=== PATIENT | male | born 1970 | race Caucasian/White ===

== ENCOUNTER 2017-09-14 21:28 | Emergency (ER) | payer OTHER ==
[~2017-09-14] VITALS: Ht 170.2 cm; Wt 108.9 kg
[~2017-09-14 21:28] MED LIST: AMOX500 PO; BUPR100 PO; Bactrim Ds Tab1 EACH PO; IBUP600 PO; IBUP800 PO; Norco 5-325 Ta1 EACH PO; Percocet 5-3251 EACH PO; TRAZ100 PO; Valium2 MG PO; Vibramycin100 MG PO
== END 2017-09-14 22:23 ==
LOC: ER 21:28
DX: S01.81XA Laceration without foreign body of other part of head, initial encounter (principal); S20.211A Contusion of right front wall of thorax, initial encounter; Y04.8XXA Assault by other bodily force, initial encounter; Z88.8 Allergy status to other drugs, medicaments and biological substances; F32.9 Major depressive disorder, single episode, unspecified; F41.9 Anxiety disorder, unspecified
CPT/HCPCS: 12001; 90471; 90714; 99283

== ENCOUNTER 2018-07-24 09:23 | Emergency (ER) | payer OTHER ==
[~2018-07-24] VITALS: Ht 170.2 cm; Wt 104.3 kg
[2018-07-24 10:09] LABS: BASOPHILS ABSOLUTE AUTO 0.09 K/mm3 (0.00-0.23); BASOPHILS PERCENT AUTO 1 % (0-2); EOSINOPHILS ABSOLUTE AUTO 0.32 K/mm3 (0.00-0.68); EOSINOPHILS PERCENT AUTO 4 % (0-6); Hematocrit 44.3 % (37.0-53.0); Hemoglobin 15.1 g/dL (13.5-17.5); IMMATURE GRAN ABSOLUTE AUTO 0.03 K/mm3 (0.00-0.10); IMMATURE GRAN PERCENT AUTO 0 % (0-1); LYMPHOCYTES ABSOLUTE AUTO 1.28 K/mm3 (0.84-5.20); LYMPHOCYTES PERCENT AUTO 15 % (21-46); MONOCYTES ABSOLUTE AUTO 1.35 K/mm3 (0.16-1.47); MONOCYTES PERCENT AUTO 16 % (4-13); Mean Corpuscular HGB 31.3 pg (26.0-34.0); Mean Corpuscular HGB Conc 34.1 g/dL (31.5-36.5); Mean Corpuscular Volume 92 fL (80-100); Mean Platelet Volume 9.6 fL (9.1-12.4); NEUTROPHILS ABSOLUTE AUTO 5.56 K/mm3 (1.96-9.15); NEUTROPHILS PERCENT AUTO 65 % (41-73); Platelet Count 177 K/mm3 (150-400); RDW Coefficient Variation 13.8 % (11.7-14.2); RDW Standard Deviation 46.8 fL (35.1-46.3); Red Blood Cell Count 4.82 M/mm3 (4.30-5.90); White Blood Cell Count 8.63 K/mm3 (4.00-11.30)
[2018-07-24 10:19] LABS: Source, Urine Clean Catch
[2018-07-24 10:24] LABS: Appearance, Urine Clear (Clear); Bilirubin, Urine Neg (Neg); Blood, Urine Neg (Neg); Color, Urine Yellow (P-Yellow); Glucose Qualitative, Urine Neg (Neg); Ketones, Urine Neg (Neg); Leukocyte Esterase, Urine Neg (Neg); Nitrite, Urine Neg (Neg); Protein, Urine Neg (Neg); Urobilinogen, Urine NORM (Normal)
[2018-07-24 10:30] LABS: Alanine Aminotransfer (ALT/SGP 63 U/L (12-78); Albumin, Blood 3.6 g/dL (3.4-5.0); Albumin/Globulin Ratio 0.9 (0.8-1.8); Alk Phos 105 U/L (50-136); Anion Gap 7 mmol/L (6-16); Aspartate Aminotrans (AST/SGOT 63 U/L (12-37); Bilirubin, Total 1.4 mg/dL (0.1-1.0); Blood Urea Nitrogen 10 mg/dL (8-24); Bun/Creatinine Ratio 17.9 (12.0-20.0); CO2, Blood 29 mmol/L (21-32); Calcium, Blood 8.4 mg/dL (8.5-10.1); Chloride, Blood 102 mmol/L (98-108); Creatinine, Blood 0.56 mg/dL (0.60-1.20); Glomerular Filtration Rate >60 (60-); Glucose, Blood 104 mg/dL (70-99); Sodium, Blood 138 mmol/L (136-145); Total Protein, Blood 7.6 g/dL (6.4-8.2)
[2018-07-24] MEDS ORDERED: HYDR25SUP PR (15:06)
[2018-07-24] MEDS ORDERED: POTCHL20ER PO (15:06)
[2018-07-24] MEDS ORDERED: Pepcid40 MG PO (15:06)
[2018-07-24] MEDS ORDERED: Norco 5-325 Ta1 EACH PO (15:06)
== END 2018-07-24 15:39 | disposition home or self-care (01) ==
LOC: ER 09:23
PROVIDERS: Emergency Medicine
DX: K64.8 Other hemorrhoids (principal); K29.70 Gastritis, unspecified, without bleeding; E87.6 Hypokalemia; M54.9 Dorsalgia, unspecified; G89.29 Other chronic pain; C62.90 Malignant neoplasm of unspecified testis, unspecified whether descended or undescended; F32.9 Major depressive disorder, single episode, unspecified
CPT/HCPCS: 36415; 46600; 74177; 80053; 81003; 83690; 85025; 86850; 86900; 86901; 99284-25; Q9967

== ENCOUNTER 2018-10-23 14:59 | Emergency (ER) | payer OTHER ==
[~2018-10-23] VITALS: Ht 170.2 cm; Wt 104.3 kg
[~2018-10-23 14:59] MED LIST changes: +HYDR25SUP PR; +POTCHL20ER PO; +Pepcid40 MG PO
[2018-10-23 15:52] LABS: BASOPHILS ABSOLUTE AUTO 0.13 K/mm3 (0.00-0.23); BASOPHILS PERCENT AUTO 2 % (0-2); EOSINOPHILS ABSOLUTE AUTO 0.38 K/mm3 (0.00-0.68); EOSINOPHILS PERCENT AUTO 5 % (0-6); Hematocrit 41.9 % (37.0-53.0); Hemoglobin 13.9 g/dL (13.5-17.5); IMMATURE GRAN ABSOLUTE AUTO 0.06 K/mm3 (0.00-0.10); IMMATURE GRAN PERCENT AUTO 1 % (0-1); LYMPHOCYTES ABSOLUTE AUTO 2.23 K/mm3 (0.84-5.20); LYMPHOCYTES PERCENT AUTO 27 % (21-46); MONOCYTES ABSOLUTE AUTO 1.06 K/mm3 (0.16-1.47); MONOCYTES PERCENT AUTO 13 % (4-13); Mean Corpuscular HGB Conc 33.2 g/dL (31.5-36.5); Mean Corpuscular Volume 93 fL (80-100); NEUTROPHILS ABSOLUTE AUTO 4.56 K/mm3 (1.96-9.15); NEUTROPHILS PERCENT AUTO 54 % (41-73); Platelet Count 282 K/mm3 (150-400); RDW Coefficient Variation 13.1 % (11.7-14.2); RDW Standard Deviation 45.2 fL (35.1-46.3); Red Blood Cell Count 4.49 M/mm3 (4.30-5.90); White Blood Cell Count 8.42 K/mm3 (4.00-11.30)
[2018-10-23 16:12] LABS: Alanine Aminotransfer (ALT/SGP 59 U/L (12-78); Albumin, Blood 3.5 g/dL (3.4-5.0); Alk Phos 142 U/L (50-136); Anion Gap 7 mmol/L (6-16); Aspartate Aminotrans (AST/SGOT 32 U/L (12-37); Bilirubin, Total 0.5 mg/dL (0.1-1.0); Blood Urea Nitrogen 7 mg/dL (8-24); Bun/Creatinine Ratio 9.9 (12.0-20.0); CO2, Blood 27 mmol/L (21-32); Calcium, Blood 8.1 mg/dL (8.5-10.1); Chloride, Blood 109 mmol/L (98-108); Creatinine, Blood 0.71 mg/dL (0.60-1.20); Globulin, Blood 3.6 g/dL (2.2-4.0); Glomerular Filtration Rate >60 (60-); Glucose, Blood 151 mg/dL (70-99); Potassium, Blood 3.2 mmol/L (3.5-5.5); Sodium, Blood 143 mmol/L (136-145); Total Protein, Blood 7.1 g/dL (6.4-8.2)
== END 2018-10-23 17:31 | disposition left against medical advice (07) ==
LOC: ER 14:59
PROVIDERS: Physician Assistant
DX: R19.00 Intra-abdominal and pelvic swelling, mass and lump, unspecified site (principal); Z53.20 Procedure and treatment not carried out because of patient's decision for unspecified reasons
CPT/HCPCS: 36415; 74177; 80053; 83690; 85025; 99284-25; Q9967

== ENCOUNTER 2020-09-28 16:22 | Emergency (ER) | payer OTHER ==
[~2020-09-28] VITALS: Ht 170.2 cm; Wt 113.4 kg
[2020-09-28 16:51] LABS: BASOPHILS ABSOLUTE AUTO 0.07 K/mm3 (0.00-0.23); BASOPHILS PERCENT AUTO 1 % (0-2); EOSINOPHILS ABSOLUTE AUTO 0.01 K/mm3 (0.00-0.68); EOSINOPHILS PERCENT AUTO 0 % (0-6); Hematocrit 42.4 % (37.0-53.0); Hemoglobin 15.3 g/dL (13.5-17.5); IMMATURE GRAN ABSOLUTE AUTO 0.03 K/mm3 (0.00-0.10); IMMATURE GRAN PERCENT AUTO 0 % (0-1); LYMPHOCYTES ABSOLUTE AUTO 1.27 K/mm3 (0.84-5.20); LYMPHOCYTES PERCENT AUTO 14 % (21-46); MONOCYTES ABSOLUTE AUTO 0.94 K/mm3 (0.16-1.47); MONOCYTES PERCENT AUTO 10 % (4-13); Mean Corpuscular HGB Conc 36.1 g/dL (31.5-36.5); Mean Corpuscular Volume 86 fL (80-100); Mean Platelet Volume 10.4 fL (9.1-12.4); NEUTROPHILS ABSOLUTE AUTO 6.87 K/mm3 (1.96-9.15); NEUTROPHILS PERCENT AUTO 75 % (41-73); Platelet Count 184 K/mm3 (150-400); RDW Coefficient Variation 12.3 % (11.7-14.2); RDW Standard Deviation 38.5 fL (35.1-46.3); Red Blood Cell Count 4.94 M/mm3 (4.30-5.90); White Blood Cell Count 9.19 K/mm3 (4.00-11.30)
[2020-09-28 17:03] LABS: Alanine Aminotransfer (ALT/SGP 94 U/L (12-78); Albumin, Blood 3.9 g/dL (3.4-5.0); Albumin/Globulin Ratio 0.8 (0.8-1.8); Alk Phos 150 U/L (50-136); Anion Gap 20 mmol/L (6-16); Aspartate Aminotrans (AST/SGOT 174 U/L (12-37); Bilirubin, Total 2.3 mg/dL (0.1-1.0); Blood Urea Nitrogen 15 mg/dL (8-24); Bun/Creatinine Ratio 21.8 (12.0-20.0); CO2, Blood 23 mmol/L (21-32); Calcium, Blood 8.5 mg/dL (8.5-10.1); Chloride, Blood 90 mmol/L (98-108); Creatinine, Blood 0.69 mg/dL (0.60-1.20); Globulin, Blood 4.7 g/dL (2.2-4.0); Glomerular Filtration Rate >60 (60-); Glucose, Blood 112 mg/dL (70-99); Potassium, Blood 2.8 mmol/L (3.5-5.5); Sodium, Blood 133 mmol/L (136-145); Total Protein, Blood 8.6 g/dL (6.4-8.2)
[2020-09-28 19:02] LABS: WBC Count, Synovial Fluid 34 /mm3 (0-180)
[2020-09-28 19:48] LABS: Color, Synovial Fluid Yellow (None-P Yel); RBC Count, Synovial Fluid 201 /mm3 (0-0)
[2020-09-28 19:49] LABS: Appearance, Synovial Fluid Viscous (Clear)
[2020-09-28] MEDS ORDERED: IBUP800 PO (19:56)
[2020-09-28] MEDS ORDERED: ONDA4 PO (19:56)
[2020-09-28] MEDS ORDERED: Norco 5-325 Ta1 EACH PO (19:56)
[2020-09-28] MEDS ORDERED: LIDO700A20 TOP (19:56)
[2020-09-28 20:31] LABS: Lymphs, Synovial Fluid 82 % (0-15); Monocytes/Macrophages, Synovia 16 % (0-65); Neutrophils, Synovial Fluid 1 % (0-24)
== END 2020-09-28 20:09 | disposition home or self-care (01) ==
LOC: ER 16:22
PROVIDERS: Emergency Medicine; Physician Assistant
DX: M25.561 Pain in right knee (principal)
CPT/HCPCS: 20610; 36415; 80053; 85025; 87070; 87075; 87205; 89051; 96374-59; 96375-59; 99283-25; A9270; J2405; J3010

== ENCOUNTER 2021-05-05 18:01 | Emergency (ER) | payer OTHER ==
[~2021-05-05] VITALS: Ht 180.3 cm; Wt 122.5 kg
[~2021-05-05 18:01] MED LIST changes: +LIDO700A20 TOP; +ONDA4 PO
== END 2021-05-06 00:58 | disposition home or self-care (01) ==
LOC: ER 18:01
DX: F10.129 Alcohol abuse with intoxication, unspecified (principal)

== ENCOUNTER 2021-09-17 17:45 | Inpatient (IN) | payer OTHER ==
[~2021-09-17] VITALS: Ht 172.7 cm; Wt 143.4 kg
[2021-09-17 18:32] LABS: BASOPHILS ABSOLUTE AUTO 0.03 K/mm3 (0.00-0.23); BASOPHILS PERCENT AUTO 0 % (0-2); EOSINOPHILS PERCENT AUTO 0 % (0-6); Hematocrit 37.4 % (37.0-53.0); Hemoglobin 12.6 g/dL (13.5-17.5); IMMATURE GRAN ABSOLUTE AUTO 0.06 K/mm3 (0.00-0.10); IMMATURE GRAN PERCENT AUTO 1 % (0-1); LYMPHOCYTES ABSOLUTE AUTO 0.48 K/mm3 (0.84-5.20); LYMPHOCYTES PERCENT AUTO 4 % (21-46); MONOCYTES ABSOLUTE AUTO 0.99 K/mm3 (0.16-1.47); MONOCYTES PERCENT AUTO 9 % (4-13); Mean Corpuscular HGB 30.3 pg (26.0-34.0); Mean Corpuscular HGB Conc 33.7 g/dL (31.5-36.5); Mean Corpuscular Volume 90 fL (80-100); Mean Platelet Volume 11.5 fL (9.1-12.4); NEUTROPHILS ABSOLUTE AUTO 10.03 K/mm3 (1.96-9.15); NEUTROPHILS PERCENT AUTO 87 % (41-73); Platelet Count 75 K/mm3 (150-400); RDW Coefficient Variation 13.9 % (11.7-14.2); Red Blood Cell Count 4.16 M/mm3 (4.30-5.90); White Blood Cell Count 11.59 K/mm3 (4.00-11.30)
[2021-09-17 18:53] LABS: Alanine Aminotransfer (ALT/SGP 137 U/L (12-78); Albumin, Blood 3.4 g/dL (3.4-5.0); Albumin/Globulin Ratio 0.6 (0.8-1.8); Alk Phos 129 U/L (50-136); Anion Gap 20 mmol/L (6-16); Aspartate Aminotrans (AST/SGOT 259 U/L (12-37); Blood Urea Nitrogen 37 mg/dL (8-24); Bun/Creatinine Ratio 34.3 (12.0-20.0); CO2, Blood 28 mmol/L (21-32); Calcium, Blood 9.4 mg/dL (8.5-10.1); Chloride, Blood 94 mmol/L (98-108); Creatinine, Blood 1.08 mg/dL (0.60-1.20); Ethanol (Alcohol), Blood, Med 4 mg/dL; Globulin, Blood 5.7 g/dL (2.2-4.0); Glomerular Filtration Rate >60 (60-); Glucose, Blood 149 mg/dL (70-99); Magnesium, Blood 1.5 mg/dL (1.6-2.4); Potassium, Blood 2.8 mmol/L (3.5-5.5); Sodium, Blood 142 mmol/L (136-145); Total Protein, Blood 9.1 g/dL (6.4-8.2)
[2021-09-17 18:58] LABS: Source, Urine Foley catheter
[2021-09-17 19:11] LABS: Phosphorus, Blood 0.6 mg/dL (2.5-4.9)
[2021-09-17 19:24] LABS: Appearance, Urine Hazy (Clear); Blood, Urine 2+ (Neg); Color, Urine Red (P-Yellow); Glucose Qualitative, Urine Neg (Neg); Ketones, Urine 2+ (Neg); Leukocyte Esterase, Urine Neg (Neg); Nitrite, Urine Neg (Neg); Protein, Urine 2+ (Neg); Urobilinogen, Urine 2+ (Normal); pH, Urine 6.5 (5.0-8.0)
[2021-09-17 19:47] LABS: U Amphetamine Screen Not Detected; U Barbituate Screen Not Detected; U Benzodiazapine Screen Not Detected; U Buprenorphine Screen Not Detected; U Cannabinoids Screen Not Detected; U Cocaine Screen Not Detected; U Methadone Screen Not Detected; U Methamphetamine Screen Not Detected; U Opiates Screen Not Detected; U Oxycodone Screen Not Detected; U Phencyclidine Screen Not Detected; U Propoxyphene Screen Not Detected
[2021-09-17 19:49] LABS: Bilirubin, Urine 1+ (Neg)
[2021-09-17 19:53] LABS: Bacteria Few /hpf; Mucus Light (0-Heavy); Squamous Epithelial Cells Few /hpf (Few)
[2021-09-17 20:12] LABS: International Normalized Ratio 1.54; Prothrombin Time Results 15.7 Sec (9.7-11.5)
[2021-09-17 20:42] LABS: Automated CSF WBC Count 0.005 K/mm3 (0-5); WBC Count, CSF 5 /mm3 (0-5)
[2021-09-17 20:47] LABS: Automated CSF WBC Count 0.004 K/mm3 (0-5); WBC Count, CSF 4 /mm3 (0-5)
[2021-09-17 21:33] LABS: Appearance, CSF Clear (Clear); Color, CSF No Color (No Color)
[2021-09-17 21:41] LABS: RBC Count, CSF 5 /mm3 (0-0)
[2021-09-17 21:42] LABS: Appearance, CSF Clear (Clear); Color, CSF No Color (No Color)
[2021-09-17 21:53] LABS: Lymphocytes, CSF 28 % (40-80); Monocytes, CSF 66 % (15-45); Neutrophils, CSF 6 % (0-6)
[2021-09-17 22:02] LABS: Lymphocytes, CSF 16 % (40-80); Monocytes, CSF 84 % (15-45)
[2021-09-17 22:04] LABS: Cryptococcus Neoformans/Gattii Not Detected (NOT DETECT); Enterovirus Not Detected (NOT DETECT); Escherichia Coli K1 Not Detected (NOT DETECT); Haemophilus Influenza Not Detected (NOT DETECT); Herpes Simplex Virus 1 Not Detected (NOT DETECT); Herpes Simplex Virus 2 Not Detected (NOT DETECT); Human Herpesvirus 6 Not Detected (NOT DETECT); Human Parechovirus Not Detected (NOT DETECT); Listeria Monocytogenes Not Detected (NOT DETECT); Neisseria Meningitidis Not Detected (NOT DETECT); Streptococcus Agalactiae Not Detected (NOT DETECT); Streptococcus Pneumoniae Not Detected (NOT DETECT); Varicella Zoster Virus Not Detected (NOT DETECT)
[2021-09-17 22:06] LABS: Glucose, CSF 93 mg/dL (40-70)
[2021-09-17 23:35] LABS: Source, Urine Foley catheter
[2021-09-17 23:42] LABS: Blood, Urine 5+ (Neg); Glucose Qualitative, Urine Neg (Neg); Ketones, Urine 1+ (Neg); Leukocyte Esterase, Urine Neg (Neg); Nitrite, Urine Neg (Neg); Protein, Urine 2+ (Neg); Urobilinogen, Urine 2+ (Normal); pH, Urine 6.5 (5.0-8.0)
[2021-09-17 23:44] LABS: Appearance, Urine Clear (Clear); Bilirubin, Urine 1+ (Neg); Color, Urine Yellow (P-Yellow)
[2021-09-17 23:59] LABS: Bacteria Rare /hpf; Red Blood Cells, Urine TNTC /hpf (0-2); Squamous Epithelial Cells Rare /hpf (Few); White Blood Cells, Urine Not Seen /hpf (0-5)
[2021-09-18 00:43] LABS: Hematocrit 33.9 % (37.0-53.0); Hemoglobin 11.7 g/dL (13.5-17.5)
[2021-09-18 06:27] LABS: BASOPHILS PERCENT AUTO 0 % (0-2); EOSINOPHILS PERCENT AUTO 0 % (0-6); Hemoglobin 10.4 g/dL (13.5-17.5); IMMATURE GRAN ABSOLUTE AUTO 0.09 K/mm3 (0.00-0.10); IMMATURE GRAN PERCENT AUTO 1 % (0-1); LYMPHOCYTES ABSOLUTE AUTO 0.38 K/mm3 (0.84-5.20); LYMPHOCYTES PERCENT AUTO 4 % (21-46); MONOCYTES ABSOLUTE AUTO 0.64 K/mm3 (0.16-1.47); MONOCYTES PERCENT AUTO 7 % (4-13); Mean Corpuscular HGB 30.5 pg (26.0-34.0); Mean Corpuscular HGB Conc 33.5 g/dL (31.5-36.5); Mean Corpuscular Volume 91 fL (80-100); Mean Platelet Volume 12.2 fL (9.1-12.4); NEUTROPHILS ABSOLUTE AUTO 8.04 K/mm3 (1.96-9.15); NEUTROPHILS PERCENT AUTO 88 % (41-73); Platelet Count 57 K/mm3 (150-400); RDW Coefficient Variation 14.1 % (11.7-14.2); RDW Standard Deviation 46.9 fL (35.1-46.3); Red Blood Cell Count 3.41 M/mm3 (4.30-5.90); White Blood Cell Count 9.15 K/mm3 (4.00-11.30)
[2021-09-18 06:52] LABS: Alanine Aminotransfer (ALT/SGP 201 U/L (12-78); Albumin, Blood 2.7 g/dL (3.4-5.0); Albumin/Globulin Ratio 0.6 (0.8-1.8); Alk Phos 97 U/L (50-136); Anion Gap 8 mmol/L (6-16); Aspartate Aminotrans (AST/SGOT 492 U/L (12-37); Bilirubin, Total 2.8 mg/dL (0.1-1.0); Blood Urea Nitrogen 31 mg/dL (8-24); Bun/Creatinine Ratio 36.3 (12.0-20.0); CO2, Blood 35 mmol/L (21-32); Calcium, Blood 8.1 mg/dL (8.5-10.1); Chloride, Blood 99 mmol/L (98-108); Creatinine, Blood 0.86 mg/dL (0.60-1.20); Globulin, Blood 4.4 g/dL (2.2-4.0); Glomerular Filtration Rate >60 (60-); Glucose, Blood 195 mg/dL (70-99); Potassium, Blood 2.6 mmol/L (3.5-5.5); Sodium, Blood 142 mmol/L (136-145)
[2021-09-18 06:56] LABS: Total Protein, Blood 7.1 g/dL (6.4-8.2)
--- NOTE | 2021-09-18 07:30 | NUR ---
SUMMARY OF EVENTS. PT ARRIVED TO ICU AT APPROXIMATELY 2230. PT OBTUNDED AND SNORING UPON ARRIVAL, ON 02 AT 3 L/MIN VIA NC. PT PROGRESSED TO VOMITING AND REQUIRED INTUBATION. DR. KEITH PLACED ETT AND R/IJ CENTRAL LINE WITH RT AT BEDSIDE. VENT SETTING AC/VC 18/500/8/70%. IV PUMPS RUNNING PROPOFOL 35 MCG/KG/MIN, PROTONIX 10 ML/HR, OCTREOTIDE 25 ML/HR, BANANA BAG AT 75 ML/HR. VS STABLE THROUGHOUT SHIFT, SEE ASSESSMENT FOR FURTHER DETAILS. REPORT GIVEN TO TETO PETIT.
[2021-09-18 07:35] LABS: Magnesium, Blood 2.2 mg/dL (1.6-2.4); Phosphorus, Blood 1.6 mg/dL (2.5-4.9)
--- NOTE | 2021-09-18 08:36 | NUR ---
Sharp of Care: Care assumed at 0700hr. Patient intubated and sedated with propofol gtt at 35 mcg/kg/min. Withdraws and extremities to painful stimuli, but otherwise unresponsive. Propofol gtt decreased to 30mcg/kg/min. Vent to AC 18/500/8/70%, SpO2-97-100%. FiO2 then decreased to 60%, spO2 remains stable. HR shows sinus tach in the low 100's, BP stable. Central line to rt IJ patent, infusing without difficulty. Dressing to rt IJ lifting around edges, will change early this shift. Ruth cath patent and intact, draining dark yellow/orange tinged urine. Protonix and Sandostatin gtt infusing. Rectal tube in place with lactulose enema dwelling at shift change. Rectal tube unclamped and approx 1L drainage note, black tinge, liquid consistency. No OG tube in place, will consult with Dr. Aparicio before placement. Consult for Dr. Aparicio (GI bleed) called to his office this morning. Received new orders per Dr. Serrano for KCL and phosphorus replacement. Will continue to monitor.
[2021-09-18 13:38] LABS: Hematocrit 30.2 % (37.0-53.0); Hemoglobin 10.1 g/dL (13.5-17.5)
[2021-09-18 17:44] LABS: Hematocrit 29.5 % (37.0-53.0); Hemoglobin 9.8 g/dL (13.5-17.5)
[2021-09-18 17:53] LABS: Anion Gap 6 mmol/L (6-16); Blood Urea Nitrogen 28 mg/dL (8-24); Bun/Creatinine Ratio 31.4 (12.0-20.0); CO2, Blood 33 mmol/L (21-32); Calcium, Blood 7.9 mg/dL (8.5-10.1); Chloride, Blood 105 mmol/L (98-108); Creatinine, Blood 0.89 mg/dL (0.60-1.20); Glomerular Filtration Rate >60 (60-); Glucose, Blood 124 mg/dL (70-99); Potassium, Blood 2.6 mmol/L (3.5-5.5); Sodium, Blood 144 mmol/L (136-145)
--- NOTE | 2021-09-18 17:53 | NUR ---
09/18/21 175 Ramon Campos History, Chart, Medications and Allergies reviewed before start of procedure.MONITOR INTACT WITH CONTINUOUS PULSE OXIMETRY AND INTERMITTENT BP.3-LEAD EKG REVIEWED WITH PHYSICIAN PRIOR TO START OF PROCEDURE.PATIENT VENTILATED WITH PROPOFOL GTT.
--- NOTE | 2021-09-18 18:57 | NUR ---
Shift Summary: Patient remained stable throughout shift. Further replacement orders for phosphorus and potassium received per Dr. Dee. VS remained stable. Continues to tolerate vent without difficulty. Propofol gtt decreased to 25mcg throghout shift. Patient continued to not follow any commands, but became more responsive to noxoius stimuli. Moving all extremities and reaching for ET tube. Upper scope performed by Dr. Apaircio and Day Surg crew this evening. Procedure performed without difficulty, see operative note. Bedside report given to NOC shift RN.
--- NOTE | 2021-09-18 22:17 | NUR ---
SHIFT ASSESSMENT ASSUMED CARE OF PT @ 1900. BEDSIDE REPORT RECEIVED FROM MARISABEL RALPH. PT INTUBATED AND SEDATED. PT PULLS BACK TO NOXIOUS STIMULI, COUGH AND GAG PRESENT. VENT SETTINGS- VC-18/500/8/35% c O2 SATS >90%. PROPOFOL GTT INFUSING @ 35MCG'S. TEMP PROBE BRUNSON DRAINING RACHEL URINE. RECTAL TUBE WITH DARK, LOOSE STOOL. OGT ESTABLISHED, TO LIS c BROWN SECRETIONS. Q6H ENULOSE. WILL MONITOR CLOSELY.
[2021-09-19 00:35] LABS: Hematocrit 27.6 % (37.0-53.0); Hemoglobin 9.3 g/dL (13.5-17.5)
[2021-09-19 06:16] LABS: BASOPHILS ABSOLUTE AUTO 0.01 K/mm3 (0.00-0.23); BASOPHILS PERCENT AUTO 0 % (0-2); EOSINOPHILS PERCENT AUTO 0 % (0-6); Hematocrit 26.9 % (37.0-53.0); Hemoglobin 8.9 g/dL (13.5-17.5); IMMATURE GRAN ABSOLUTE AUTO 0.03 K/mm3 (0.00-0.10); IMMATURE GRAN PERCENT AUTO 0 % (0-1); LYMPHOCYTES PERCENT AUTO 12 % (21-46); MONOCYTES ABSOLUTE AUTO 0.59 K/mm3 (0.16-1.47); MONOCYTES PERCENT AUTO 9 % (4-13); Mean Corpuscular HGB 30.7 pg (26.0-34.0); Mean Corpuscular HGB Conc 33.1 g/dL (31.5-36.5); Mean Corpuscular Volume 93 fL (80-100); Mean Platelet Volume 12.7 fL (9.1-12.4); NEUTROPHILS ABSOLUTE AUTO 5.31 K/mm3 (1.96-9.15); NEUTROPHILS PERCENT AUTO 79 % (41-73); NRBC ABSOLUTE 0.02 K/mm3 (0.00-0.02); NRBC Auto 0.3 /100 WBC (0.0-0.2); Platelet Count 51 K/mm3 (150-400); RDW Coefficient Variation 14.5 % (11.7-14.2); RDW Standard Deviation 49.2 fL (35.1-46.3); White Blood Cell Count 6.74 K/mm3 (4.00-11.30)
--- NOTE | 2021-09-19 06:21 | NUR ---
SHIFT SUMMARY PT REMAINS INTUBATED AND SEDATED. ATTEMPTED SBT THIS AM BUT WHEN SEDATION IS TURNED DOWN PT BECAME VERY AGITATED, UNABLE TO CALM PT DOWN ENOUGH TO PERFORM TRIAL. PT WAS ABLE TO SQUEEZE BOTH HANDS STRONGLY WITH SEDATION DOWN. PT ENDED UP REQUIRING AN INCREASE IN SEDATION, PRECEDEX GTT NOW ON @ 0.2MCG/KG/HR. PT ALSO GIVEN ONE DOSE OF 2MG ATIVAN. OGT REMAINS ON LIS WITH BROWN LIQUID OUT. RECTAL TUBE PATENT, DRAINING THIN, BLACK STOOL. NO OTHER ACUTE CHANGES NOTED LAST NIGHT.
[2021-09-19 06:50] LABS: Alanine Aminotransfer (ALT/SGP 185 U/L (12-78); Albumin, Blood 2.9 g/dL (3.4-5.0); Albumin/Globulin Ratio 0.8 (0.8-1.8); Alk Phos 67 U/L (50-136); Anion Gap 7 mmol/L (6-16); Aspartate Aminotrans (AST/SGOT 350 U/L (12-37); Bilirubin, Direct 1.3 mg/dL (0.0-0.3); Bilirubin, Indirect 0.9 mg/dL (0.1-0.7); Bilirubin, Total 2.2 mg/dL (0.1-1.0); Blood Urea Nitrogen 25 mg/dL (8-24); Bun/Creatinine Ratio 24.8 (12.0-20.0); CO2, Blood 32 mmol/L (21-32); Calcium, Blood 7.3 mg/dL (8.5-10.1); Chloride, Blood 107 mmol/L (98-108); Creatinine, Blood 1.01 mg/dL (0.60-1.20); Globulin, Blood 3.5 g/dL (2.2-4.0); Glomerular Filtration Rate >60 (60-); Glucose, Blood 142 mg/dL (70-99); Magnesium, Blood 1.8 mg/dL (1.6-2.4); Phosphorus, Blood 2.5 mg/dL (2.5-4.9); Potassium, Blood 2.5 mmol/L (3.5-5.5); Sodium, Blood 146 mmol/L (136-145); Total Protein, Blood 6.4 g/dL (6.4-8.2)
[2021-09-19 08:40] LABS: Hematocrit 26.1 % (37.0-53.0); Hemoglobin 8.5 g/dL (13.5-17.5)
--- NOTE | 2021-09-19 13:06 | NUR ---
CARE OF PT ASSUMED AT 0700. PT SEDATED ON [facility] VENT WITH PROPOFOL AT 35MCG, PRECEDEX ON STANDBY. SANDOSTAIN GTT AT 50MCG AND NS AT 75CC/HR. PT HYPOTENSIVE W MAPS <60 AROUND 0735. PROPOFOL PLACED ON STANDBY; DR BAZZI IN UNIT AND UPDATED. LR BOLUS OF 500CC ORDERED AND GIVEN, LEVOPHED ORDERED. OLD BLOOD TO RECTAL BAG, LIGHT GREEN BILE TO OGT, H&H STABLE. PT WOKE UP AROUND 0810, EXTREMELY AGITATED, THRASHING, BUCKING IN BED, VENT ALARMING STACKING. PROPOFOL STARTED AT 40MCG AND INCREASED TO 50MCG, PRECEDEX STARTED AT 0.2MCG, ATIVAN 1MG GIVEN WITHOUT EFFECT FOLLOWED BY 2MG. PT ABLE TO ELECTRIC RANGE ASSEMBLER HAND TO COMMAND BUT UNABLE TO REDIRECT OR CALM PT. PT SEDATED AND CALM AROUND 1000, BP STARTED TO FALL AGAIN; PROPOFOL DECREASED TO 40MCG AND LEVOPHED STARTED AT 5MCG. PT'S FRIEND WING IN TO SEE PT; SHE WILL TRY TO CONTACT FAMILY. PER WING PT IS ESTRANGED FROM FAMILY, PT HAS A SON WHO LIVES IN [place]. MAP IS NOW >65.
[2021-09-19 14:44] LABS: Magnesium, Blood 1.9 mg/dL (1.6-2.4)
[2021-09-19 14:47] LABS: Potassium, Blood 2.4 mmol/L (3.5-5.5)
--- NOTE | 2021-09-19 15:04 | NUR ---
K+ OF 2.[address] BAZZI. 40MEQ INFUSING NOW. REPEAT K+ ORDERED AFTER INFUSION COMPLETE. MAG 1GM ORDERED WELL
--- NOTE | 2021-09-19 16:40 | NUR ---
UA SENT PER DR BAZZI. LEVOPHED REMAINS AT 5MCG, PRECEDEX AT 0.2MCG, SANDOSTATIN AT 50MCG, PROPOFOL AT 40MCG, BANANA BAG, K+, AND MAG INFUSING. PT'S AUNT CHIOMA CALLED AND GIVEN UPDATE. PT'S SON IS IN THE AIRFOR[employer]; AUNT WILL TRY AND CONTACT HIM. FIO2 DOWN TO 30%. DR BAZZI UPDATED. NO OTHER CHANGES.
[2021-09-19 16:42] LABS: Source, Urine Foley catheter
[2021-09-19 17:20] LABS: Appearance, Urine Hazy (Clear); Bilirubin, Urine Neg (Neg); Blood, Urine 4+ (Neg); Color, Urine Amber (P-Yellow); Glucose Qualitative, Urine Neg (Neg); Ketones, Urine Neg (Neg); Leukocyte Esterase, Urine Neg (Neg); Nitrite, Urine Neg (Neg); Protein, Urine 2+ (Neg); Specific Gravity, Urine 1.015 (1.003-1.022); Urobilinogen, Urine NORM (Normal)
[2021-09-19 17:35] LABS: Red Blood Cells, Urine 25-50 /hpf (0-2)
[2021-09-19 17:36] LABS: White Blood Cells, Urine 0-2 /hpf (0-5)
[2021-09-19 17:38] LABS: Bacteria Mod /hpf; Squamous Epithelial Cells Not Seen /hpf (Few)
--- NOTE | 2021-09-19 20:56 | NUR ---
SHIFT ASSESSMENT ASSUMED CARE OF PT @ 1900. BEDSIDE REPORT FROM MARISABEL EDDY. PT INTUBATED AND SEDATED. VENT SETTINGS-AC:18/500/30%/ PEEP-8 c O2 SATS >95%. PROPOFOL INFUSING @ 40, LEVOPHED @ 5MCG/MIN, AND PRECEDEX @ 0.2MCG/KG/HR. OGT TO LIS. RECTAL TUBE c SMALL AMNT OF DARK LIQUID STOOL. TEMP PROBE BRUNSON DRAINING YELLOW URINE c SEDIMENT. EVENING K LABS BACK, K REMAINS LOW. 40KCL ORDERED, INFUSING NOW, WILL RECHECK K ONCE COMPLETE. WILL CONTINUE TO MONITOR CLOSELY.
[2021-09-20 05:33] LABS: BASOPHILS ABSOLUTE AUTO 0.03 K/mm3 (0.00-0.23); BASOPHILS PERCENT AUTO 0 % (0-2); EOSINOPHILS PERCENT AUTO 4 % (0-6); Hematocrit 27.5 % (37.0-53.0); Hemoglobin 9.1 g/dL (13.5-17.5); IMMATURE GRAN ABSOLUTE AUTO 0.03 K/mm3 (0.00-0.10); IMMATURE GRAN PERCENT AUTO 0 % (0-1); LYMPHOCYTES ABSOLUTE AUTO 1.39 K/mm3 (0.84-5.20); LYMPHOCYTES PERCENT AUTO 19 % (21-46); MONOCYTES ABSOLUTE AUTO 0.75 K/mm3 (0.16-1.47); MONOCYTES PERCENT AUTO 10 % (4-13); Mean Corpuscular HGB 30.6 pg (26.0-34.0); Mean Corpuscular HGB Conc 33.1 g/dL (31.5-36.5); Mean Corpuscular Volume 93 fL (80-100); Mean Platelet Volume 12.5 fL (9.1-12.4); NEUTROPHILS ABSOLUTE AUTO 4.95 K/mm3 (1.96-9.15); NEUTROPHILS PERCENT AUTO 66 % (41-73); Platelet Count 59 K/mm3 (150-400); RDW Coefficient Variation 14.5 % (11.7-14.2); RDW Standard Deviation 49.1 fL (35.1-46.3); Red Blood Cell Count 2.97 M/mm3 (4.30-5.90); White Blood Cell Count 7.45 K/mm3 (4.00-11.30)
[2021-09-20 05:45] LABS: International Normalized Ratio 1.58; Prothrombin Time Results 16.1 Sec (9.7-11.5)
[2021-09-20 06:13] LABS: Alanine Aminotransfer (ALT/SGP 200 U/L (12-78); Albumin, Blood 2.7 g/dL (3.4-5.0); Albumin/Globulin Ratio 0.8 (0.8-1.8); Alk Phos 68 U/L (50-136); Anion Gap 6 mmol/L (6-16); Aspartate Aminotrans (AST/SGOT 317 U/L (12-37); Bilirubin, Total 2.8 mg/dL (0.1-1.0); Blood Urea Nitrogen 12 mg/dL (8-24); Bun/Creatinine Ratio 15.7 (12.0-20.0); CO2, Blood 28 mmol/L (21-32); Calcium, Blood 7.1 mg/dL (8.5-10.1); Chloride, Blood 111 mmol/L (98-108); Creatinine, Blood 0.77 mg/dL (0.60-1.20); Globulin, Blood 3.6 g/dL (2.2-4.0); Glomerular Filtration Rate >60 (60-); Glucose, Blood 120 mg/dL (70-99); Phosphorus, Blood 1.8 mg/dL (2.5-4.9); Sodium, Blood 145 mmol/L (136-145); Total Protein, Blood 6.3 g/dL (6.4-8.2)
--- NOTE | 2021-09-20 06:27 | NUR ---
SHIFT SUMMARY NO ACUTE CHANGES IN PT CONDITION DURING THE NIGHT. PT REMAINS INTUBATED AND SEDATED, NO CHANGES TO VENT SETTINGS. PT GIVEN SHORT SEDATION VACATION BUT REMAINS VERY DIFFICULT TO KEEP CALM, BECOMES A SAFETY RISK TO PROTECT ETT WITH SEDATION TITRATED DOWN. PT WOULD SQUEEZE BOTH HANDS VIGOROUSLY UPON COMMAND BUT THRASHES HARD SOON AFTER. PROPOFOL AND PRECEDEX ON AT THIS TIME. OGT TO LIS. SMALL AMNT OF LOOSE, DARK STOOL VIA RECTAL TUBE. BRUNSON CATH CONTINUES TO DRAIN DARK YELLOW URINE. PT GIVEN 40MEQ KCL AFTER MIDNIGHT AND IS SCHEDULED TO RECEIVE ANOTHER 30MM KPHOS FOR 0500 LABS. REPORT TO ONCOMING NURSE.
--- NOTE | 2021-09-20 08:44 | NUR ---
CARE OF PT ASSUMED AT 0700. PT SEDATED ON PROPOFOL AT 35MCG AND PRECEDEX AT 0.2MCG FOR BLOSSOM OF MECH VENT. DURING TURN PT STARTED THRASHING AND PULLING HANDS TOWARDS ETT, KICKING LEGS, AND BUCKING IN BED. PT DID NOT OPEN EYES AND DID NOT FOLLOW ANY DIRECTIONS. PRECEDEX INCREASED TO 0.3MCG, ATIVAN 2MG GIVEN. DR BAZZI GIVEN UPDATE. THICK DARK PRASAD SPUTUM SENT. BANANA BAG AND SANDOSTATIN DC'D. DR JARAMILLO IN TO SEE PT; FULL UPDATE GIVEN. LEVOPHED DECREASED FROM 5MCG TO 3MCG. 30MMOL KPHOS INFUSING.
[2021-09-20 10:09] LABS: HBSAG SCREEN Negative (Negative); HCV AB <0.1 (0.0-0.9); HEP A AB, IGM Negative (Negative); HEP B CORE AB, IGM Negative (Negative)
--- NOTE | 2021-09-20 13:45 | NUR ---
PIVOT 1.5 STARTED AT 20CC/HR (AT GOAL RATE). K+ 60MEQ ORDERED FOR K+ 2.8.
--- NOTE | 2021-09-20 18:21 | NUR ---
PROPOFOL AT 35MCG FOR ENTIRE SHIFT, PRECEDEX INCREASED FROM 0.2MCG TO 0.3MCG THIS AM FOR AGITATION. PT REQUIRED ATIVAN SEVERAL TIMES THIS SHIFT PRIOR TO CARE (TURNS, ORAL CARE), PT WOULD BECOME VERY AGITATED AND THRASH. PT UNABLE TO FOLLOW COMMANDS THIS SHIFT. PT'S AUNT WAS UPDATED VIA PHONE BY DR BAZZI. PT IS RECEIVING 60MEQ K+, K+ TO BE REDRAWN AFTER INFUSION. LEVOPHED HAS REMAINED AT 3MCG FOR ENTIRE SHIFT W MAPS >65. TUBE FEEDS STARTED.
--- NOTE | 2021-09-20 21:35 | NUR ---
SHIFT ASSESSMENT ASSUMED CARE OF PT @ 1900. BEDSIDE REPORT FROM MARISABEL EDDY. PT INTUBATED AND SEDATED. PULLS AWAY/ GRIMACES DURING ORAL CARE, COUGH AND GAG PRESENT. VENT SETTINGS: AC-18/500/30/5 c SATS >90%. PROPOFOL GTT @ 35MCG/KG/MIN, PRECEDEX @ 0.3MCG/KG/HR, AND LEVOPHED @ 3MCG/MIN c MAP >65. TF INFUSING @ GOAL. RECTAL TUBE WITH SMALL LOOSE DARK DRAINAGE. TEMP PROBE BRUNSON CATH DRAINING DARK YELLOW/ RACHEL URINE. CONTINUING TO REPLINISH POTASSIUM, ANOTHER 60MEQ TO BEGIN. NO OTHER ACUTE CHANGES FROM DAY SHIFT. WILL MONITOR CLOSELY.
[2021-09-21 04:27] LABS: BASOPHILS ABSOLUTE AUTO 0.04 K/mm3 (0.00-0.23); BASOPHILS PERCENT AUTO 1 % (0-2); EOSINOPHILS ABSOLUTE AUTO 0.46 K/mm3 (0.00-0.68); EOSINOPHILS PERCENT AUTO 6 % (0-6); Hematocrit 28.1 % (37.0-53.0); Hemoglobin 9.2 g/dL (13.5-17.5); IMMATURE GRAN ABSOLUTE AUTO 0.06 K/mm3 (0.00-0.10); IMMATURE GRAN PERCENT AUTO 1 % (0-1); LYMPHOCYTES ABSOLUTE AUTO 1.53 K/mm3 (0.84-5.20); LYMPHOCYTES PERCENT AUTO 21 % (21-46); MONOCYTES ABSOLUTE AUTO 1.17 K/mm3 (0.16-1.47); MONOCYTES PERCENT AUTO 16 % (4-13); Mean Corpuscular HGB Conc 32.7 g/dL (31.5-36.5); Mean Corpuscular Volume 95 fL (80-100); Mean Platelet Volume 12.8 fL (9.1-12.4); NEUTROPHILS PERCENT AUTO 56 % (41-73); NRBC ABSOLUTE 0.02 K/mm3 (0.00-0.02); NRBC Auto 0.3 /100 WBC (0.0-0.2); Platelet Count 63 K/mm3 (150-400); RDW Coefficient Variation 14.6 % (11.7-14.2); RDW Standard Deviation 50.5 fL (35.1-46.3); Red Blood Cell Count 2.97 M/mm3 (4.30-5.90); White Blood Cell Count 7.46 K/mm3 (4.00-11.30)
[2021-09-21 04:44] LABS: Alanine Aminotransfer (ALT/SGP 173 U/L (12-78); Albumin, Blood 2.5 g/dL (3.4-5.0); Albumin/Globulin Ratio 0.6 (0.8-1.8); Alk Phos 72 U/L (50-136); Anion Gap 5 mmol/L (6-16); Aspartate Aminotrans (AST/SGOT 242 U/L (12-37); Bilirubin, Direct 1.8 mg/dL (0.0-0.3); Bilirubin, Total 2.8 mg/dL (0.1-1.0); Blood Urea Nitrogen 11 mg/dL (8-24); Bun/Creatinine Ratio 14.6 (12.0-20.0); CO2, Blood 26 mmol/L (21-32); Calcium, Blood 7.2 mg/dL (8.5-10.1); Chloride, Blood 115 mmol/L (98-108); Creatinine, Blood 0.75 mg/dL (0.60-1.20); Globulin, Blood 3.9 g/dL (2.2-4.0); Glomerular Filtration Rate >60 (60-); Glucose, Blood 110 mg/dL (70-99); Magnesium, Blood 1.8 mg/dL (1.6-2.4); Phosphorus, Blood 2.1 mg/dL (2.5-4.9); Potassium, Blood 3.4 mmol/L (3.5-5.5); Sodium, Blood 146 mmol/L (136-145); Total Protein, Blood 6.4 g/dL (6.4-8.2)
--- NOTE | 2021-09-21 06:13 | NUR ---
SHIFT SUMMARY PT REMAINS INTUBATED AND SEDATED. NO CHANGES TO VENT SETTINGS. UNABLE TO TITRATE LEVOPHED OFF, CURRENTLY @ 3MCG/MIN c MAP >65. PT CONTINUES TO BE LABILE WITH DECREASED SEDATION. PROPOFOL AND PRECEDEX REMAIN ON. PT HAVING MOMENTS OF DIAPHORESIS, POSSIBLY ETOH W/D, MEDICATED c PRN ATIVAN MULTIPLE TIMES. CONTINUING TO REPLACE POTASSIUM, CURRENTLY RECEIVING 20MM KPHOS. NO OTHER ACUTE CHANGES DURING THE NIGHT.
--- NOTE | 2021-09-21 08:50 | NUR ---
ASSUMED CARE / DR BAZZI: REPORT RECEIVED FROM JANET Zabala RN. ASSUMED CARE OF THIS PT AT APPROX 0700. ON ASSESSMENT, THE PT IS SEDATED W/ PROPOFOL & PRECEDEX, RESTING QUIETLY. INTUBATED W/ 8.0 ETT, 27.0 CM ATT. BITE BLOCK REPOSITIONED BY RT RENETTA, THIS AM. LS ARE DIM IN BASES, VENT SETTINGS: AC/VC 18/500/8/30% W/ O2 SATS > 92% ON AVG. MONITOR SHOWS SR W/ HR 70s, LEVOPHED INFUSING AT 3 MCG/MIN W/ GOAL MAP > 65. RECTAL TUBE PATENT/ DRAINING DARK BROWN UNFORMED STLS. TEMP BRUNSON PATENT/ DRAINING DARK RACHEL/ TEA COLORED URINE. SKIN CONDITION OVERALL INTACT, Q2H REPOSITIONING TO MAINTAIN SKIN INTEGRITY. PROVIDER AT BEDSIDE THIS AM TO EVAL PT. NO CHANGES TO PLAN OF CARE AT THIS TIME. CONTINUE TO ASSESS PT's MENTATION VIA SEDATION VACATIONS UNTIL APPROPRIATE FOR EXTUBATION. WILL CONTINUE TO MONITOR & UPDATE NEEDED.
--- NOTE | 2021-09-21 12:15 | NUR ---
TUBE FEEDING: PER DIETARY, TUBE FEEDING FORMULA & RATE CHANGED. FEEDING IS NOW VITAL HP INFUSING AT 25 ML/HR W/ 30 ML H2O FLUSH Q4H. RESIDUALS MODERATE AT NOON CHECK.
[2021-09-21 14:00] LABS: Anion Gap 5 mmol/L (6-16); Blood Urea Nitrogen 11 mg/dL (8-24); Bun/Creatinine Ratio 13.6 (12.0-20.0); CO2, Blood 27 mmol/L (21-32); Chloride, Blood 112 mmol/L (98-108); Creatinine, Blood 0.81 mg/dL (0.60-1.20); Glomerular Filtration Rate >60 (60-); Glucose, Blood 115 mg/dL (70-99); Sodium, Blood 144 mmol/L (136-145)
--- NOTE | 2021-09-21 17:19 | NUR ---
SHIFT SUMMARY: NO ACUTE CHANGES SINCE PRIOR UPDATES. PT REMAINS SEDATED W/ PROPOFOL & PRECEDEX, INTUBATED W/ 8.0 ETT. BECOMES AGITATED EASILY W/ COMPLETION OF ADLs, PRN ATIVAN PER EMAR. LS ARE CLEAR, DIM IN BASES. VENT SETTINGS: AC/VC 18/500/8/30% W/ O2 SATS > 92% ON AVG. MOD AMNTS THICK PRASAD SPUTUM SUCTIONED THROUGH ETT. MONITOR SHOWS SR W/ HR 80s, LEVOPHED INFUSING AT 3 MCG/MIN FOR HYPOTENSION. OGT IN PLACE W/ TUBE FEEDS OF VHP INFUSING AT GOAL RATE OF 25 ML/HR, MOD RESIDUALS NOTED - SEE I&O. SMALL AMNT OF DARK BROWN, UNFORMED BM NOTED IN RECTAL TUBE. TEMP BRUNSON PATENT/ DRAINING DARK BROWN-TEA COLORED URINE. 350 ML OUT THIS SHIFT, DISCUSSED W/ DR BAZZI & 1L LR BOLUS CURRENTLY INFUSING. SKIN CONDITION OVERALL INTACT, Q2H REPOSITIONING TO MAINTAIN SKIN INTEGRITY. WILL CONTINUE TO MONITOR & REPORT OFF TO ONCOMING RN.
--- NOTE | 2021-09-21 19:00 | NUR ---
ASSUMED CARE OF PT @1900 PT SEDATED AND INTUBATED, PRECEDEX 0.3MCG/KG/HR, PROPOFOL 40MCG/KG/MIN, LEVOPHED 3MCG/MIN, ETT 8.0, 27CM @TEETH, TKO NS 10MLS/HR, KCL 10MEQ/HR, VITAL HP 25MLS/HR VIA OG TUBE, BRUNSON CATH PATENT AND DRAINING RACHEL URINE, RECTAL TUBE DRAINING DARK BROWN LIQUID STOOLS, HR 80s, SBP 80-90s, MAP 71, SPO2 >94%, VENT AC VC 18/500/8/30%, CENTRAL LINE RIJ, SWR IN PLACE. CHIOMA CALLED AND UPDATED. SEE FULL ASSESSMENT.
--- NOTE | 2021-09-21 22:15 | NUR ---
@2000 PT PROPOFOL LOWERED TO 30MCG/KG/MIN, PT MOVED ALL EXTREMETIES. PULLING ON RESTRAINTS, TRIED TO OPEN EYES W/VERBAL COMMANDS.
[2021-09-22 03:47] LABS: BASOPHILS ABSOLUTE AUTO 0.04 K/mm3 (0.00-0.23); BASOPHILS PERCENT AUTO 1 % (0-2); EOSINOPHILS ABSOLUTE AUTO 0.44 K/mm3 (0.00-0.68); EOSINOPHILS PERCENT AUTO 5 % (0-6); Hematocrit 27.7 % (37.0-53.0); IMMATURE GRAN ABSOLUTE AUTO 0.11 K/mm3 (0.00-0.10); IMMATURE GRAN PERCENT AUTO 1 % (0-1); LYMPHOCYTES ABSOLUTE AUTO 1.51 K/mm3 (0.84-5.20); LYMPHOCYTES PERCENT AUTO 18 % (21-46); MONOCYTES ABSOLUTE AUTO 1.83 K/mm3 (0.16-1.47); MONOCYTES PERCENT AUTO 22 % (4-13); Mean Corpuscular HGB 30.6 pg (26.0-34.0); Mean Corpuscular HGB Conc 32.5 g/dL (31.5-36.5); Mean Corpuscular Volume 94 fL (80-100); Mean Platelet Volume 11.9 fL (9.1-12.4); NEUTROPHILS ABSOLUTE AUTO 4.28 K/mm3 (1.96-9.15); NEUTROPHILS PERCENT AUTO 52 % (41-73); Platelet Count 72 K/mm3 (150-400); RDW Coefficient Variation 15.3 % (11.7-14.2); RDW Standard Deviation 51.3 fL (35.1-46.3); Red Blood Cell Count 2.94 M/mm3 (4.30-5.90); White Blood Cell Count 8.21 K/mm3 (4.00-11.30)
[2021-09-22 04:01] LABS: International Normalized Ratio 1.39; Prothrombin Time Results 14.3 Sec (9.7-11.5)
[2021-09-22 04:11] LABS: Alanine Aminotransfer (ALT/SGP 137 U/L (12-78); Albumin, Blood 2.4 g/dL (3.4-5.0); Albumin/Globulin Ratio 0.6 (0.8-1.8); Alk Phos 82 U/L (50-136); Anion Gap 6 mmol/L (6-16); Aspartate Aminotrans (AST/SGOT 181 U/L (12-37); Bilirubin, Total 3.1 mg/dL (0.1-1.0); Blood Urea Nitrogen 10 mg/dL (8-24); Bun/Creatinine Ratio 14.6 (12.0-20.0); CO2, Blood 26 mmol/L (21-32); Calcium, Blood 7.5 mg/dL (8.5-10.1); Chloride, Blood 112 mmol/L (98-108); Creatinine, Blood 0.69 mg/dL (0.60-1.20); Globulin, Blood 3.8 g/dL (2.2-4.0); Glomerular Filtration Rate >60 (60-); Glucose, Blood 109 mg/dL (70-99); Magnesium, Blood 1.9 mg/dL (1.6-2.4); Phosphorus, Blood 2.3 mg/dL (2.5-4.9); Potassium, Blood 3.4 mmol/L (3.5-5.5); Sodium, Blood 144 mmol/L (136-145); Total Protein, Blood 6.2 g/dL (6.4-8.2)
--- NOTE | 2021-09-22 06:19 | NUR ---
END OF SHIFT SUMMARY NO ACUTE EVENTS THROUGHOUT SHIFT. PT REMAINS SEDATED AND INTUBATED. PRECEDEX 0.3MCG/KG/HR, PROPOFOL 40MCG/KG/MIN, LEVOPHED 3MCG/MIN. SEDATION VACATION PROPOFOL DOWN TO 30MCG/KG/MIN PT PULLED ON RESTRAINTS AND MOVED LEGS, DID NOT FOLLOW COMMANDS, TURNING HEAD SIDE TO SIDE AND COUGHING. PROPOFOL INCREASED AND PT WAS CALM THROUGHOUT SHIFT. ETT TUBE 8.0, 27CM@TEETH, VENT AC VC 18/500/8/30%. SPO2 >95%, HR 70s, SBP 80-90s, MAINTAINING MAP >70, CENTRAL LINE RIJ PATENT AND INFUSING, VITAL HP INFUSING THROUGH OG TUBE @25MLS/HR, RESIDUALS HAVE BEEN LOW, 0000 ASSESSMENT RESIDUALS HAD A CRANBERRY COLOR, 0400 RESIDUALS DID NOT, RECTAL TUBE DRAINING TO GRAVITY W/300MLS LIQUID DARK BROWN STOOL, BRUNSON CATH PATENT AND DRAINING DARK RACHEL URINE. SKIN INTEGRITY REMAINS INTACT. WILL CONTINUE TO MONITOR AND REPORT TO ONCOMING MARISABEL
--- NOTE | 2021-09-22 08:10 | NUR ---
ASSUMED CARE: REPORT RECEIVED FROM GERA Zabala RN & BLADIMIR Unger, [employer]. ASSUMED CARE OF THIS PT AT APPROX 0700. ON ASSESSMENT, THE PT IS SEDATED W/ PROPOFOL & PRECEDEX, RESTING QUIETLY. INTUBATED W/ 8.0 ETT, NOTED TO BE 27.0 CM ATT. HE BECOMES EASILY AGITATED DURING ADLs OR INCREASED STIMULUS, PULLING AT BILAT SOFT WRIST RESTRAINTS. LS DIM IN BASES, VENT SETTINGS: AC/VC 18/500/8/30% W/ O2 SATS > 92% ON AVG, DESATS TO 89% W/ COUGHING EPISODES. SUCTIONING MOD AMNTS THICK PRASAD SPUTUM THROUGH ETT. MONITOR SHOWS SR W/ HR 70-80s, LEVOPHED INFUSING AT 3 MCG/MIN FOR HYPOTENSION, GOAL TO MAINTAIN MAP > 65. OGT IN PLACE W/ TUBE FEEDS OF VHP INFUSING AT GOAL RATE OF 25 ML/HR. MOD RESIDUALS - SEE I&O. RECTAL TUBE IN PLACE DRAINING DARK BROWN UNFORMED STLS. TEMP BRUNSON PATENT/ DRAINING DARK TEA COLORED URINE. SKIN CONDITION OVERALL INTACT, Q2H REPOSITIONING TO MAINTAIN SKIN INTEGRITY. WILL CONTINUE TO MONITOR & UPDATE NEEDED.
--- NOTE | 2021-09-22 09:30 | NUR ---
DR MI: PROVIDER AT BEDSIDE THIS AM TO EVAL PT. DISCUSSED PT's PERSISTENTLY LOW POTASSIUM LEVEL ON LABS DESPITE REPLETION, HE STS TO GIVE AN 80 MEQ DOSE OF KCL THROUGH OGT IN ADDITION TO THE 20 MEQ IV KCL THAT WAS ORDERED THIS AM. THE PT HAS BEEN PLACED ON SPONTANEOUS W/ PS 24, PEEP 5 & 30% FIO2 AT APPROX 0922. HE IS TOLERATING THIS WELL W/ ADEQUATE TVs & RR. DR MI WOULD LIKE THIS RN TO ATTEMPT INCREASING PRECEDEX SO THAT DOSE OF PROPOFOL MAY BE DECREASED, TOLERATED. NO OTHER CHANGES AT THIS TIME.
--- NOTE | 2021-09-22 17:28 | NUR ---
SHIFT SUMMARY: NO ACUTE CHANGES SINCE PRIOR UPDATES. PT REMAINS SEDATED W/ PROPOFOL & PRECEDEX, INTUBATED W/ 8.0 ETT. HE BECOMES AGITATED & DIAPHORETIC W/ INCREASED STIMULUS BUT OVERALL HAS BEEN RESTING QUIETLY THIS SHIFT. LS DIM IN BASES, PT ON VENT W/ SETTINGS: SPONTANEOUS W/ PS 20, PEEP 5 & FIO2 30%. O2 SATS > 92% ON AVG, PT HAVING MOD AMNTS THICK PRASAD SPUTUM SUCTIONED THROUGH ETT. MONITOR SHOWS SR W/ HR 70-80s, LEVOPHED INFUSING AT 3 MCG/MIN FOR HYPOTENSION, MAINTAINING MAP > 65. OGT IN PLACE W/ TUBE FEEDS INFUSING AT GOAL RATE OF 25 ML/HR W/ MOD RESIDUALS NOTED - SEE I&O. SMALL AMNT OF BROWN LIQUID STLS NOTED IN RECTAL TUBE. BRUNSON PATENT/ DRAINIG DARK TEA COLORED URINE W/ DIURESIS PER EMAR. SKIN CONDITION OVERALL INTACT, Q2H REPOSITIONING TO MAINTAIN SKIN INTEGRITY. DR MI STS TO LEAVE PT ON SPONTANEOUS VENT SETTINGS LONG TOLERATED, OKAY TO SWITCH BACK TO PRIOR AC/VC SETTINGS IF NECESSARY. WILL CONTINUE TO MONITOR & REPORT OFF TO ONCOMING RN.
--- NOTE | 2021-09-22 19:00 | NUR ---
ASSUMED CARE ASSUMED CARE OF PATIENT. REMAINS INTUBATED- SPONTANEOUS VENTILATION WITH PS 20, PEEP 5, FIO2 30%. RR 20s. SEDATED WITH PROPOFOL AT 30MCG/KG/MIN AND PRECEDEX AT 0.9MCG/KG/HR. BILATERAL SOFT WRIST RESTRAINTS IN PLACE TO PREVENT SELF-EXTUBATION. MONITOR SHOWS NSR, RATE 70-80s. LEVOPHED AT 3MCG/MIN TO MAINTAIN MAP >65. OG WITH VITAL HIGH PROTEIN AT GOAL RATE OF 25CC/HR. 30CC H20 FLUSH Q4H. RECTAL TUBE IN PLACE WITH LIQUID BROWN STOOL. BRUNSON PATENT AND DRAINING TO GRAVITY- RACHEL URINE. SCDs TO BLEs. RIJ CENTRAL LINE NOTED. SEE SHIFT ASSESSMENT FOR FULL ASSESSMENT.
[2021-09-23 04:31] LABS: BASOPHILS ABSOLUTE AUTO 0.08 K/mm3 (0.00-0.23); BASOPHILS PERCENT AUTO 1 % (0-2); EOSINOPHILS ABSOLUTE AUTO 0.53 K/mm3 (0.00-0.68); EOSINOPHILS PERCENT AUTO 6 % (0-6); Hematocrit 29.7 % (37.0-53.0); Hemoglobin 9.6 g/dL (13.5-17.5); IMMATURE GRAN ABSOLUTE AUTO 0.51 K/mm3 (0.00-0.10); IMMATURE GRAN PERCENT AUTO 5 % (0-1); LYMPHOCYTES ABSOLUTE AUTO 1.83 K/mm3 (0.84-5.20); LYMPHOCYTES PERCENT AUTO 19 % (21-46); MONOCYTES ABSOLUTE AUTO 2.29 K/mm3 (0.16-1.47); MONOCYTES PERCENT AUTO 24 % (4-13); Mean Corpuscular HGB 30.4 pg (26.0-34.0); Mean Corpuscular HGB Conc 32.3 g/dL (31.5-36.5); Mean Corpuscular Volume 94 fL (80-100); NEUTROPHILS ABSOLUTE AUTO 4.21 K/mm3 (1.96-9.15); NEUTROPHILS PERCENT AUTO 45 % (41-73); Platelet Count 102 K/mm3 (150-400); RDW Coefficient Variation 15.2 % (11.7-14.2); RDW Standard Deviation 51.1 fL (35.1-46.3); Red Blood Cell Count 3.16 M/mm3 (4.30-5.90); White Blood Cell Count 9.45 K/mm3 (4.00-11.30)
[2021-09-23 05:00] LABS: Anion Gap 4 mmol/L (6-16); Blood Urea Nitrogen 10 mg/dL (8-24); Bun/Creatinine Ratio 14.5 (12.0-20.0); CO2, Blood 27 mmol/L (21-32); Chloride, Blood 111 mmol/L (98-108); Creatinine, Blood 0.69 mg/dL (0.60-1.20); Glomerular Filtration Rate >60 (60-); Glucose, Blood 126 mg/dL (70-99); Magnesium, Blood 1.8 mg/dL (1.6-2.4); Phosphorus, Blood 1.5 mg/dL (2.5-4.9); Potassium, Blood 3.9 mmol/L (3.5-5.5); Sodium, Blood 142 mmol/L (136-145)
--- NOTE | 2021-09-23 06:52 | NUR ---
SHIFT SUMMARY NO ACUTE CHANGES DURING NOC. REMAINS INTUBATED- SWITCHED TO AC/VC+ VENTILATION AT [address] MI. SETTINGS: AC/VC+ RATE 18/500/PEEP 8, FIO2 30%. SEDATED WITH PRECEDEX AT 0.9MCG/KG/HR AND PROPOFOL AT 30MCG/KG/MIN. ATTEMPTED TO TITRATE PROPOFOL DOWN, BUT PT BECAME AGITATED AND EXTREMELY DIAPHORETIC. MOVES ALL EXTREMITIES WHEN SEDATION DECREASED. NOT FOLLOWING ANY COMMANDS. BILATERAL SOFT WRIST RESTRAINTS IN PLACE. LEVOPHED BETWEEN 3-5MCG/MIN TO MAINTAIN MAP >65. NOW INFUSING AT 3MCG/MIN. OG WITH VHP AT GOAL RATE OF 25CC/HR. 30CC H20 FLUSHES Q4H. RESIDUALS BETWEEM 30-120CC. RECTAL TUBE IN PLACE- LIQUID BROWN STOOL. BRUNSON PATENT AND DRAINING TO GRAVITY- GOOD RESPONSE TO IV LASIX. WILL REPORT TO ONCOMING RN WHEN AVAILABLE.
--- NOTE | 2021-09-23 09:00 | NUR ---
ASSUMED CARE / DR MI: REPORT RECEIVED FROM EVERARDO Allen RN. ASSUMED CARE OF THIS PT AT APPROX 0700. ON ASSESSMENT, THE PT IS SEDATED W/ PROPOFOL & PRECEDEX. INTUBATED W/ 8.0 ETT & NOTED TO BE 27.0 CM ATT. THE PT LINDQUIST, DOES NOT FOLLOW DIRECTIONS, IS EASILY AGITATED W/ CARE MEASURES & DIAPHORETIC. LS ARE CLEAR T/O, DIM IN BASES. VENT SETTINGS: SPONTANEOUS W/ PS 20, PEEP 5 & 30% FIO2 W/ O2 SATS > 92% ON AVG, DESATS TO 86% W/ COUGHING EPISODES. MOD AMNTS THICK PRASAD SPUTUM SUCTIONED THROUGH ETT. MONITOR SHOWS SR W/ HR 70s, LEVOPHED INFUSING AT 3 MCG/MIN FOR HYPOTENSION. OGT IN PLACE W/ TUBE FEEDS INFUSING AT GOAL RATE, MOD RESIDUALS - SEE I&O. RECTAL TUBE PATENT/ DRAINING DARK BROWN LIQUID STLS W/ OUTPUT NOTED IN TUBING. SKIN CONDITION OVERALL INTACT, Q2H REPOSITIONING TO MAINTAIN SKIN INTEGRITY. PROVIDER AT BEDSIDE TO EVAL PT, WOULD LIKE PRECEDEX TO BE TITRATED UP NEEDED TO LOWER RATE OF PROPOFOL. HE MAY ORDER FURTHER DIURESIS THIS SHIFT, RECHECK PHOSPHORUS LEVEL 1HR AFTER KPHOS COMPLETED. NO PLANS FOR EXTUBATION R/T CURRENT ETOH W/D SYMPTOMS. WILL CONTINUE TO MONITOR & UPDATE NEEDED.
--- NOTE | 2021-09-23 17:33 | NUR ---
SHIFT SUMMARY ASSUMED CARE AT 1600, REPORT FROM GLADIS PETIT. NO ACUTE CHANGES. PT REMAINS ON SPONT 20/5/25%. PLAN TO RETURN TO FULL SUPPORT ON NOC SHIFT. PRECEDEX AND PROPOFOL GTT FOR SEDATION. LEVO GTT FOR MAP>65. DIURESED THIS SHIFT, 2900 ML CLEAR RACHEL URINE OUT. WILL CONTINUE TO MONITOR UNTIL REPORT TO ONCOMING NURSE.
[2021-09-24 04:19] LABS: Hematocrit 29.5 % (37.0-53.0); Hemoglobin 9.7 g/dL (13.5-17.5); Mean Corpuscular HGB 30.6 pg (26.0-34.0); Mean Corpuscular HGB Conc 32.9 g/dL (31.5-36.5); Mean Corpuscular Volume 93 fL (80-100); Mean Platelet Volume 11.3 fL (9.1-12.4); Platelet Count 113 K/mm3 (150-400); RDW Coefficient Variation 15.2 % (11.7-14.2); RDW Standard Deviation 50.1 fL (35.1-46.3); Red Blood Cell Count 3.17 M/mm3 (4.30-5.90); White Blood Cell Count 10.46 K/mm3 (4.00-11.30)
[2021-09-24 04:42] LABS: Albumin, Blood 2.3 g/dL (3.4-5.0); Albumin/Globulin Ratio 0.5 (0.8-1.8); Bilirubin, Total 2.6 mg/dL (0.1-1.0); Calcium, Blood 8.3 mg/dL (8.5-10.1); Creatinine, Blood 0.75 mg/dL (0.60-1.20); Globulin, Blood 4.5 g/dL (2.2-4.0); Magnesium, Blood 1.9 mg/dL (1.6-2.4); Phosphorus, Blood 2.1 mg/dL (2.5-4.9); Potassium, Blood 3.5 mmol/L (3.5-5.5); Total Protein, Blood 6.8 g/dL (6.4-8.2)
--- NOTE | 2021-09-24 06:52 | NUR ---
SHIFT SUMMARY NO ACUTE CHANGES. REMAINED ON AC/VC+ 18/500/8/30% T/O NOC. SEDATED WITH PROPOFOL AT 25MCG/KG/MIN AND PRECEDEX AT 1.1MCG/KG/HR. ALSO MEDICATED WITH ATIVAN 2MG IV X 2 DOSES FOR INCREASED AGITATION. MOVES ALL EXTREMITIES. NOT FOLLOWING ANY COMMANDS. LEVOPHED AT 3MCG/MIN TO MAINTAIN MAP >65. AFEBRILE. OG WITH VHP AT GOAL RATE OF 25CC/HR. RESIDUALS <10CC. RECTAL TUBE IN PLACE. BRUNSON PATENT AND DRAINING TO GRAVITY. RIJ CL PATENT. WILL REPORT TO ONCOMING RN WHEN AVAILABLE.
--- NOTE | 2021-09-24 10:40 | NUR ---
SEDATION VACATION AND SBT ATTEMPTED. PT WAS ABLE TO OPEN EYE'S AND SQUEEZE L HAND BUT PT BECOMES AGITATED/ANXIOUS EASILY. RESP RATE IN THE 30'S-40'S AND WILL DESAT TO 87%. PLACED BACK ON SEDATION AND BACK TO AC MODE. FRIEND WING AT BEDSIDE AND PT RESPONDS WELL TO HER.
--- NOTE | 2021-09-24 18:13 | NUR ---
SUMMARY PT INTUBATED AND SEDATED WITH PROPOFOL AND PRECEDEX. PT WAS ABLE TO OPEN EYE'S TO COMMAND AND STOCK PITCHER L HAND DURING SEDATION VACATION AND SBT. BECAME ANXIOUS WITH INCREASED RESP RATE AND DESATS TO 87% AND HAD TO BE PLACED BACK ON AC MODE. GAVE ATIVAN A COUPLE TIMES DUE TO AGITATION T/O THE DAY. LEVOPHED STILL RUNNING. NO SIGN OF DISTRESS.
--- NOTE | 2021-09-24 19:00 | NUR ---
ASSUMED CARE ASSUMED CARE OF PATIENT. REMAINS INTUBATED- AC/VC+ 18/500/PEEP5/FIO2 30%. RR 20s. SEDATED WITH PROPOFOL AT 30MCG/KG/MIN AND PRECEDEX AT 1.1MCG/KG/HR. MOVES ALL EXTREMITIES. DOES NOT FOLLOW COMMANDS. BECOMES AGITATED WITH STIMULATION, BUT CALMS QUICKLY. MONITOR SHOWS NSR, RATE 90s. LEVOPHED AT 3MCG/MIN TO MAINTAIN MAP >65. OG WITH VHP AT GOAL RATE OF 25CC/HR. RECTAL TUBE WITH SMALL AMOUNT OF LIQUID BROWN STOOL. BRUNSON PATENT- DRAINING RACHEL URINE. SCDs TO BLE. RIJ PATENT, SITE CLEAR. SEE SHIFT ASSESSMENT FOR FULL ASSESSMENT.
[2021-09-25 04:19] LABS: Hematocrit 29.3 % (37.0-53.0); Hemoglobin 9.8 g/dL (13.5-17.5); Mean Corpuscular HGB 31.2 pg (26.0-34.0); Mean Corpuscular HGB Conc 33.4 g/dL (31.5-36.5); Mean Corpuscular Volume 93 fL (80-100); Mean Platelet Volume 11.6 fL (9.1-12.4); NRBC ABSOLUTE 0.02 K/mm3 (0.00-0.02); NRBC Auto 0.1 /100 WBC (0.0-0.2); Platelet Count 132 K/mm3 (150-400); RDW Coefficient Variation 15.5 % (11.7-14.2); RDW Standard Deviation 50.7 fL (35.1-46.3); Red Blood Cell Count 3.14 M/mm3 (4.30-5.90); White Blood Cell Count 13.91 K/mm3 (4.00-11.30)
[2021-09-25 04:35] LABS: Albumin, Blood 2.1 g/dL (3.4-5.0); Albumin/Globulin Ratio 0.5 (0.8-1.8); Bilirubin, Total 3.1 mg/dL (0.1-1.0); Creatinine, Blood 1.28 mg/dL (0.60-1.20); Globulin, Blood 4.5 g/dL (2.2-4.0); Phosphorus, Blood 2.3 mg/dL (2.5-4.9); Potassium, Blood 3.6 mmol/L (3.5-5.5); Total Protein, Blood 6.6 g/dL (6.4-8.2)
[2021-09-25 04:43] LABS: BAND PERCENT MAN 30 % (0-8); BASOPHILS PERCENT MAN 0 % (0-2); EOSINOPHILS PERCENT MAN 0 % (0-6); LYMPHOCYTES ABSOLUTE MAN 1.11 K/mm3 (0.84-5.20); LYMPHOCYTES PERCENT MAN 8 % (21-46); METAMYELOCYTE ABSOLUTE MAN 0.41 K/mm3 (0.00-0.00); METAMYELOCYTE PERCENT MAN 3 % (0-0); MONOCYTES ABSOLUTE MAN 1.94 K/mm3 (0.16-1.47); MONOCYTES PERCENT MAN 14 % (4-13); NEUTROPHILS ABSOLUTE MAN 10.43 K/mm3 (1.96-9.15); SEG NEUTROPHILS PERCENT MAN 45 % (41-73); TOTAL CELLS COUNTED 100
--- NOTE | 2021-09-25 06:24 | NUR ---
SHIFT SUMMARY REMAINS INTUBATED. VENT SETTINGS UNCHANGED- AC/VC+ 18/500/5/ FIO2 30-75%. FIO2 NOW AT 75% TO MAINTAIN SATS >90%. INCREASE IN SPUTUM PRODUCTION NOTED T/O NIGHT- NOW SUCTIONING MODERATE THICK PRASAD SPUTUM. SEDATED WITH PROPOFOL NOW AT 35MCG/KG/MIN AND PRECEDEX AT 1.2MCG/KG/HR. PERIODS OF AGITATION CONTINUE. MEDICATED WITH ATIVAN 2MG IV X 2 DOSES. LEVOPHED BETWEEN 3-6MCG/MIN TO MAINTAIN MAP >65. NOW INFUSING AT 6MCG/MIN. SR, RATE 80s-90s. FREQUENTLY DIAPHORETIC. STILL NOT FOLLOWING COMMANDS. OG WITH VHP AT GOAL RATE OF 25CC/HR. ONE EPISODE OF HIGH RESIDUAL EARLIER IN SHIFT. RECTAL TUBE WITH APPROXIMATELY 300CC LIQUID BROWN STOOL. WILL REPORT TO ONCOMING SHIFT WHEN AVAILABLE. BRUNSON PATENT AND DRAINING RACHEL URINE.
--- NOTE | 2021-09-25 07:51 | NUR ---
TOOK OVER CARE OF PT AT 0700, PT VENTED ON AC/VC 18/500/75%/5, PT IS SEDATED ON 1.3MCG/KG/HR OF PRECEDEX, 35MCG OF PROPOFOL, AND BLOOD PRESSURE SUPPORT WITH LEVO OF 6MCG. PER ENERGY MANAGEMENT SPECIALIST REPORT, PT WAS ON 30% FiO2 AT 5AM AND HAS SINCE BEEN INCREASED TO 75% BY 0700.
--- NOTE | 2021-09-25 09:00 | NUR ---
PEEP INCREASED TO 10 BY . PROPOFOL OFF SINCE 830 FOR SEDATION HOLIDAY.
--- NOTE | 2021-09-25 18:33 | NUR ---
SUMMARY NEURO: PROPOFOL WAS OFF FOR SEVERAL HOURS, PRECEDEX DECREASED TO 1.2. PT DID NOT OPEN EYES, NON PURPOSEFUL MOVEMENTS IN ALL EXTREMETIES. BRAIN STEM REFLEXES IN PLACE. LUNGS; DIMINISHED BASES. VENT SETTINGS CHANGED SEVERAL TIME THROUGHTOUT THE DAY BY RT AND . ET TUBE WAS READVANCED BACK TO [address] PE COMPLETED AND NEGATIVE. VENT SETTINGS AC/VC 18/500/10/50. SKIN; DIAPHORETIC GI; HIGH RESIDUALS, ABDOMEN FIRM AND DISTENDED. RECTAL TUBE CHANGED, NOT LEAKING OF STOOL AROUND TUBE BUT MUCOUS IS COMING FROM ANUS. TF INCREASED TO 45ML/HR GI; TEA COLORED URINE, CREATININE INCREASED. CENTRAL LINE REMOVED, PICC PLACED, TMAX 100.4 TEMPORAL
--- NOTE | 2021-09-25 19:00 | NUR ---
ASSUMED CARE OF PT @1900 PT SEDATED AND INTUBATED. PROPOFOL 30MCG/KG/MIN. PRECEDEX 1.2MCG/KG/HR. ETT SZ 8, 27CM AT THE TEETH. VENT 18/500/10/50%. RR 30s HR 100-110s, SBP 80s, MAP 65, LEVOPHED 8MCG/MIN. PICC LINE IN [place] W/5CM EXPOSED. TKO NS 10MLS/HR. VITAL HP @45MLS/HR 30MLS FLUSH Q4HRS. BRUNSON PATENT AND DRAINING ORANGE URINE, RECTAL TUBE IN PLACE AND DRAINING DARK BROWN STOOLS. BILATERAL COMPRESSION DEVICES ON CALVES. OVERALL GOOD SKIN INTEGRITY. BILATERAL SOFT WRIST RESTRAINTS IN PLACE.
--- NOTE | 2021-09-25 19:40 | NUR ---
VITAL HP TURNED OFF
--- NOTE | 2021-09-25 20:18 | NUR ---
HIGH RESIDUALS CALLED DR NELSON REGARDING HIGH RESIDUALS OF 710ML DURING ASSESSMENT. NEW ORDERS PROVIDED FOR IV REGLAN Q6HR PRN AND ADDED A LIPASE LAB FOR THE AM.
--- NOTE | 2021-09-26 | NUR ---
MIDNIGHT NOTES GERA PETIT SW DR NELSON PER PREVIOUS NOTES. PT FEBRILE AT 104.6. HR IN THE 130s, SBP 70s, MAP 60s. ADD EPINEPHERINE, BOLUS LITER LRS, SOLUCORTEF. 2240:EPINEPHERINE STARTED @5MCG/MIN. LITER BOLUS LRS STARTED. PT IS ON COOLING BLANKETS WITH ICE PACKS. 0: PTs SBP 90-100s, MAP 70s. TEMP SLOWLY DECREASINNG. PTs HAS WING AND RAY AT BEDSIDE. 0: PT TEMP DECREASED TO 103.7. EPINEPHERINE 5MCG/MIN. JONG 120MCG/MIN. PROPOFOL 25MCG/KG/MIN. TKO 10MLS/HR. METRONIDAZOLE 100MLS/HR, VASOPRESSIN 0.04 UNITS PER MINUTE. PRECEDEX 1.4 MCG/KG/HR. LRS 100MLS/HR. LEVOPHED 30MCG/MIN. PT REMAINS DIAPHORETIC. 0000: ALL MEDS LISTED ABOVE INFUSING. TEMP 103.3 COOLING BLANKETS AND ICE STILL IN PLACE. HR 133. RR 28. SPO2 89%. SBP LOW 100s. MAP 80. FRIENDS REMAIN AT BEDSIDE. VENT AC VC 18/500/10/60%
--- NOTE | 2021-09-26 02:40 | NUR ---
UPDATE PT MAP CONTINUOUSLY <65 WITH SBP 70'S. LEVOPHED TITRATED UP TO 15MCG/MIN, PROPOFOL MINIMALLY TITRATED DOWN TO 25MCG/KG/MIN, RR CONTINOUS TO BE LOW 30'S, HR 105-110. CALLED DR NELSON REGARDING MAP AND BP, NEW ORDERS PROVIDED TO START VASOPRESSIN, GIVE 1L BOLUS OF LR, FOLLOWED BY LR AT 100ML/HR.
[2021-09-26 03:43] LABS: Hematocrit 33.1 % (37.0-53.0); Hemoglobin 10.9 g/dL (13.5-17.5); Mean Corpuscular HGB 30.8 pg (26.0-34.0); Mean Corpuscular HGB Conc 32.9 g/dL (31.5-36.5); Mean Corpuscular Volume 94 fL (80-100); Mean Platelet Volume 12.3 fL (9.1-12.4); NRBC ABSOLUTE 0.11 K/mm3 (0.00-0.02); NRBC Auto 0.3 /100 WBC (0.0-0.2); Platelet Count 179 K/mm3 (150-400); RDW Coefficient Variation 15.5 % (11.7-14.2); RDW Standard Deviation 52.2 fL (35.1-46.3); Red Blood Cell Count 3.54 M/mm3 (4.30-5.90); White Blood Cell Count 38.63 K/mm3 (4.00-11.30)
[2021-09-26 04:05] LABS: Bun/Creatinine Ratio 18.4 (12.0-20.0); Calcium, Blood 8.5 mg/dL (8.5-10.1); Creatinine, Blood 2.77 mg/dL (0.60-1.20); Magnesium, Blood 1.9 mg/dL (1.6-2.4); Phosphorus, Blood 4.4 mg/dL (2.5-4.9); Potassium, Blood 3.6 mmol/L (3.5-5.5)
[2021-09-26 04:20] LABS: BAND PERCENT MAN 22 % (0-8); BASOPHILS PERCENT MAN 0 % (0-2); EOSINOPHILS PERCENT MAN 0 % (0-6); LYMPHOCYTES ABSOLUTE MAN 1.93 K/mm3 (0.84-5.20); LYMPHOCYTES PERCENT MAN 5 % (21-46); MONOCYTES ABSOLUTE MAN 2.31 K/mm3 (0.16-1.47); MONOCYTES PERCENT MAN 6 % (4-13); NEUTROPHILS ABSOLUTE MAN 34.38 K/mm3 (1.96-9.15); SEG NEUTROPHILS PERCENT MAN 67 % (41-73); TOTAL CELLS COUNTED 100
--- NOTE | 2021-09-26 05:34 | NUR ---
TF RESTARTED @10MLS/HR
--- NOTE | 2021-09-26 06:03 | NUR ---
END OF SHIFT SUMMARY PT AGITATED THROUGHOUT SHIFT. RR LOW 30s, HR 100-120. PROPOFOL 25MCG/KG/MIN. PRECEDEX 1.4MCG/KG/HR. FENTANYL AND ATIVAN GIVEN IV PRN. PT HAS NON PURPOSEFUL MOVEMENTS AND DOES NOT OBEY VERBAL COMMANDS. SBP7 70-80s W/MAP LOW 60s. DR NELSON CALLED AND ADDED VASOPRESSIN 0.04UNITS/MIN @0240. BP AND MAP IMPROVED TO 90s AND MAP 70s. LEVOPHED 18MCG/MIN. LRS 1000ML BOLUS GIVEN. LRS CRI 100MLS/HR. VENT AC VC 18/500/10/50%. ETT TUBE SZ 8, 27@TEETH. PT HAS HAD HIGH RESIDUALS. TF HAS BEEN OFF AND ON THROUGHOUT SHIFT. METOCLOPRAMIDE GIVEN, RESTARTED @0530 @10MLS/HR. ABDOMEN FIRM AND DISTENDED. RECTAL TUBE PATENT AND DRAINING DARK BROWN LIQUID STOOLS. SKIN INTEGRITY REMAINS GOOD. DIAPHORETIC, INCREASED WARMTH, MAX TEMP 101.2. TYLENOL GIVEN. PICC LINE PATENT IN KANDICE 5CM OUT. INCREASED WBC COUNT ON AM LABS, CREATNINE INCREASING. WILL CONTINUE TO MONITOR AND REPORT TO ONCOMING RN.
--- NOTE | 2021-09-26 07:30 | NUR ---
Received report from Cady Su. Patient on BiPAP / and sats low to mid 90%. She is slow to respond. Family at bedside and has asked to give break from BIPAP and placed her on 4L O2 via NC and sats low ot mid 90%. She has PICC line to KANDICE and is infusing Heparin at 21 units/kg/hr, NS TKO. She has 16Fr rangel draining to gravity. She also has 18 ga powerglide to DULCE, Flushed and SL'd.
--- NOTE | 2021-09-26 07:39 | NUR ---
Received report from Maryam PETIT. Patient is intubated and sedated with 80 ET and 27 cm at teeth. Vent settings AC/VC 18/500/40/10 and sats 93%. He has PICC line to KANDICE and is infusing LR @ 100 ml/hr, Levophed at 18 mcg/min, Precedex @ 1.4 mcg/kg/hr, Propofol 25 mcg/kg/min, NS TKO, Vasopressin @ 0.04 units/min. Systolics 80-90's. Patient has 18 Fr temp rangel draining to gravity light matthew colored urine. Rectal tube in place liquid brown stool. Patient in bilateral soft wrist restraints, removed briefly and assessed skin and circulation and reapplied. SCD's bilateral to LE's. Patient has OG in place infusing VHP at 10 ml/hr and 30 ml water flush q4. Patient shows no purposeful movement with sedation level.
[2021-09-26 09:28] LABS: Source, Urine Foley catheter
--- NOTE | 2021-09-26 09:30 | NUR ---
Patient is more drowsy and refused meds and placed NG to left nares and placed on LIS. Placed back on BIPAP 16/10. She is resting.
[2021-09-26 09:31] LABS: Blood, Urine 5+ (Neg); Glucose Qualitative, Urine Neg (Neg); Ketones, Urine Neg (Neg); Leukocyte Esterase, Urine 1+ (Neg); Nitrite, Urine Neg (Neg); Protein, Urine 2+ (Neg); Urobilinogen, Urine 1+ (Normal)
[2021-09-26 09:44] LABS: Appearance, Urine Hazy (Clear); Bilirubin, Urine 1+ (Neg); Color, Urine Yellow (P-Yellow)
[2021-09-26 09:45] LABS: Bacteria Mod /hpf; Red Blood Cells, Urine 0-2 /hpf (0-2); Squamous Epithelial Cells Few /hpf (Few)
--- NOTE | 2021-09-26 10:18 | NUR ---
Dr Sawant has been in room and assessed an d new orders written. Patient O2 consumption has increased as sats decreased to mid 80's. He is going to CT for abdomen and Vent settings of 18/50/100/10 and sats 93%. Echo just finished. Increased Levophed to 20 mcg/min and started LR bolus per JUL. Cultures on blood, urine, and stool all sent.
[2021-09-26 10:21] LABS: C DIFFICILE DNA POSITIVE (Negative)
--- NOTE | 2021-09-26 11:29 | NUR ---
Dr Sawant spoke with aunts and son and gave update. Current vent settings since return from CT are AC/VC 18/50/70/10 and sats 97%. Gtt's: Levophed 20 mcg/min, LR 250 ml/hr, Precedex 1.4 mcg/kg/hr, Vasopressin 0.04 units/min, Propofol 25 mcg/kg/min, NS TKO. TF continue at 10 ml/hr and 30 mlwater flush Q4
--- NOTE | 2021-09-26 13:57 | NUR ---
No significant changes with gtt's or vent settings. Patient received bath and linen change. Sats 97%. Placed OG to LIS as he had over 500 residual and a significant amount of air with distended belly.
--- NOTE | 2021-09-26 15:30 | NUR ---
Patient remains intubatedd and sedated. Vent settings AC/VC 18/500/70/10 and sats 91%. He continues to be hypotensive. His KANDICE PICC infusing Levophed at 20 mcg/min, Vasopressin 0.04 units/min, Neosynepherine 40 mcg/min, LR at 100 ml/hr, Propofol 25 mcg/kg/min. Ruth and rectal tube patent with moderate output.
--- NOTE | 2021-09-26 17:46 | NUR ---
Patient remains intubated and sedated with 8.0 ET and 27 cm at teeth. Vent settings AC/VC 18/50/70/10 and sats 90%. He has PICC line to KANDICE and is infusing Levophed at 20 mcg/min, LR at 100 ml/hr, NS TKO, Vasopressin 0.04 units/min, Propofol at 25 mcg/kg/min, Denilson-synepherine at 60 mcg/min. Rectyal tube continues to have liquid brown output and Ruth has light matthew output. Boosted and repositioned. OG is on LIS to help decompress stomach. SCD's bilaterally and soft wrist restraints bilaterally.
--- NOTE | 2021-09-26 19:00 | NUR ---
ASSUMED CARE OF PT @1900 PT IS INTUBATED AND SEDATED. ON CONTACT PRECAUTIONS. PICC KANDICE 5CM OUT. PROPOFOL 25MCG/KG/MIN. PRECEDEX 1.4MCG/KG/HR. ETT TUBE SZ 8, 27CM @TEETH. VENT AC VC18/500/10/60%. SPO2 LOW 90s. RR 30s. PHENYLEPHRINE 80MCG/MIN. VASOPRESSIN 0.04 UNITS/HR. LEVOPHED 20 MCG/MIN. HR 110-120. SBP IN THE 80s. MAP 70s. TKO NS 10MLS/HR. METRONIDAZOLE 100MLS/HR. LRS 100MLS/HR. PT IS DIAPHORETIC W/ COOL EXTREMITIES. BRUNSON PATENT AND DRAINING DARK YELLOW URINE TO GRAVITY. RECTAL TUBE DRAINING DARK BROWN LIQUID STOOLS TO GRAVITY. SEE FULL ASSESSMENT
--- NOTE | 2021-09-26 20:36 | NUR ---
UPDATE BOTH CHIOMA (PT AUNT) AND WING (PT FRIEND) CALLED SEPERATLY ASKING HOW PT IS DOING, BOTH EAGER TO KNOW IF HE IS "GETTING BETTER" AND ASKING IF THE ANTIBIOTICS ARE WORKING. TOLD THEM BOTH THAT PT IS STILL VERY SICK AND THAT IT IS GOING TO TAKE TIME FOR THE ANTIBIOTICS TO START WORKING, ALSO TOLD THEM THAT THE BP MEDICATION IS HAVING TO BE TITRATED UP SLOWLY WHICH IS CONCERNING. BOTH CONVERSATIONS ENDED WITH THEM ASKING TO CALL THEM IF ANYTHING CHANGES.
--- NOTE | 2021-09-26 22:00 | NUR ---
PT FEBRILE AUXILLARY TEMP. TEMP BRUNSON NON FUNCTIONAL. REPLACED TEMP BRUNSON. PT 104.6
--- NOTE | 2021-09-26 22:02 | NUR ---
PT TEMP NANNETTE NOT REGISTERING. PT FEBRILE ON AXILLARY @103.5. COOLING BLANKET AND ICEPACKS APPLIED. TEMP NANNETTE REPLACED. REGISTERING @103.3.
--- NOTE | 2021-09-26 22:16 | NUR ---
FAMILY CALL TO SON SONYA RODRIGUES JR TO GIVE UPDATE. NO ANSWER, MESSAGE LEFT TO CALL ICU.
--- NOTE | 2021-09-26 22:25 | NUR ---
UPDATE CALLED DR LESLIE SHEN DETERIORATION. SINCE PLACING NEW TEMP BRUNSON TEMPATURE IS NOW 104.8, AND PRESSORS ARE CONT TO BE TITRATED UP, JONG INFUSING AT 120, LEVOPHED 30MCG/MIN, VASOPRESSIN INFUSING. NEW ORDERS PROVIDED FOR AN ADDITIONAL BOLUS OF LR, START EPINEPHRINE ONCE LEVOPHED IS TITRATED UP TO 40MCG/MIN, START HYDROCORTIZONE, AND GIVE AMP OF CALCIUM GLUCONATE IVPB. CHIOMA NOTIFIED OF PT CHANGES, WING ALSO NOTIFIED OF PT PT CHANGES, WING WILL BE COMING IN TO SIT WITH PATIENT.
--- NOTE | 2021-09-27 00:06 | NUR ---
MIDNIGHT NOTES GERA PETIT SW DR NELSON PER PREVIOUS NOTES. PT FEBRILE AT 104.6. HR IN THE 130s. SBP 70S. MAP 60s. ADD EPINEPHERINE, BOLUS LITER LRS, SOLUCORTEF. 2240: EPINEPHERINE STARTED @5MCG/MIN. LITER BOLUS LRS STARTED. PT IS ON COOLING BLANKETS WITH ICE PACKS. 0: PTs SBP 90-100s, MAP 70s. TEMP SLOWLY DECREASING. PT HAS WING AND FRIEND AT BEDSIDE. 0: PT TEMP DECREASED TO 103.7. EPINEPHERINE 5MCG/MIN. JONG 120 MCG/MIN. PROPOFOL 25MCG/KG/MIN. TKO NS 10MLS/HR. METRONIDAZOLE 100MLS/HR. VASOPRESSIN 0.04 UNITS PER MINUTE. PRECEDEX 1.4 MCG/KG/HR. LRS 100MLS/HR. LEVOPHED 30 30MCG/MIN. PT REMAINS DIAPHORETIC. 0000: ALL MEDS LISTED ABOVE INFUSING. TEMP 103.3 COOLING BLANKETS AND ICE STILL IN PLACE. HR 133. RR 28. SPO2 89%. SBP LOW 100s. MAP 80. FRIENDS REMAIN AT BEDSIDE. VENT AC VC 18/500/10/60%
--- NOTE | 2021-09-27 00:14 | NUR ---
PT FRIENDS LEFT BEDSIDE. WE WILL CALL WITH ANY UPDATES.
[2021-09-27 00:45] LABS: Source, Urine Foley catheter
[2021-09-27 00:48] LABS: Blood, Urine 4+ (Neg); Glucose Qualitative, Urine Neg (Neg); Ketones, Urine 1+ (Neg); Leukocyte Esterase, Urine 1+ (Neg); Nitrite, Urine Neg (Neg); Protein, Urine 3+ (Neg); Urobilinogen, Urine 2+ (Normal)
[2021-09-27 01:02] LABS: Appearance, Urine Hazy (Clear); Bilirubin, Urine 1+ (Neg); Color, Urine Amber (P-Yellow)
[2021-09-27 01:06] LABS: Amorphous Heavy (0-Heavy); Bacteria Mod /hpf; Mucus Light (0-Heavy); Renal Epithelial Few /hpf (0-Rare); Squamous Epithelial Cells Not Seen /hpf (Few)
[2021-09-27 03:42] LABS: Hemoglobin 13.2 g/dL (13.5-17.5); Mean Corpuscular HGB 30.3 pg (26.0-34.0); Mean Corpuscular HGB Conc 30.7 g/dL (31.5-36.5); NRBC ABSOLUTE 0.67 K/mm3 (0.00-0.02); Platelet Count 150 K/mm3 (150-400); RDW Coefficient Variation 15.7 % (11.7-14.2); RDW Standard Deviation 56.7 fL (35.1-46.3); Red Blood Cell Count 4.35 M/mm3 (4.30-5.90)
[2021-09-27 03:44] LABS: Mean Corpuscular Volume 99 fL (80-100); Mean Platelet Volume 13.3 fL (9.1-12.4)
[2021-09-27 04:05] LABS: Magnesium, Blood 2.3 mg/dL (1.6-2.4)
[2021-09-27 04:09] LABS: BAND PERCENT MAN 14 % (0-8); BASOPHILS ABSOLUTE MAN 1.28 K/mm3 (0.00-0.23); BASOPHILS PERCENT MAN 2 % (0-2); EOSINOPHILS ABSOLUTE MAN 0.64 K/mm3 (0.00-0.68); EOSINOPHILS PERCENT MAN 1 % (0-6); LYMPHOCYTES ABSOLUTE MAN 6.43 K/mm3 (0.84-5.20); LYMPHOCYTES PERCENT MAN 10 % (21-46); METAMYELOCYTE ABSOLUTE MAN 2.57 K/mm3 (0.00-0.00); METAMYELOCYTE PERCENT MAN 4 % (0-0); MONOCYTES ABSOLUTE MAN 10.93 K/mm3 (0.16-1.47); MONOCYTES PERCENT MAN 17 % (4-13); MYELOCYTE ABSOLUTE MAN 2.57 K/mm3 (0.00-0.00); MYELOCYTE PERCENT MAN 4 % (0-0); NEUTROPHILS ABSOLUTE MAN 39.86 K/mm3 (1.96-9.15); SEG NEUTROPHILS PERCENT MAN 48 % (41-73); TOTAL CELLS COUNTED 100
[2021-09-27 04:31] LABS: Alanine Aminotransfer (ALT/SGP 43 U/L (12-78); Albumin, Blood 1.4 g/dL (3.4-5.0); Albumin/Globulin Ratio 0.3 (0.8-1.8); Alk Phos 161 U/L (50-136); Anion Gap 19 mmol/L (6-16); Aspartate Aminotrans (AST/SGOT 121 U/L (12-37); Blood Urea Nitrogen 70 mg/dL (8-24); Bun/Creatinine Ratio 16.6 (12.0-20.0); CO2, Blood 12 mmol/L (21-32); Calcium, Blood 7.2 mg/dL (8.5-10.1); Chloride, Blood 99 mmol/L (98-108); Creatinine, Blood 4.21 mg/dL (0.60-1.20); Globulin, Blood 5.2 g/dL (2.2-4.0); Glomerular Filtration Rate 16 (60-); Glucose, Blood 210 mg/dL (70-99); Potassium, Blood 5.5 mmol/L (3.5-5.5); Sodium, Blood 130 mmol/L (136-145); Total Protein, Blood 6.6 g/dL (6.4-8.2); Vancomycin, Random 19.6 ug/mL
[2021-09-27 04:34] LABS: PCO2 Arterial 37.1 mmHg (35-45); PO2 Arterial 87.8 mmHg (80-100)
--- NOTE | 2021-09-27 04:59 | NUR ---
UPDATE PT SON SONYA SCOTT ANSWERED PHONE WHEN CALLED, HE WAS UPDATED ABOUT PT CONDITION AND THE DETERIORATION OVER THE NIGHT. SON WAS VERY DISTANT AND WITHDRAWN, DID NOT ASK QUESTIONS AND THANKED FOR THE UPDATE.
[2021-09-27 05:12] LABS: Phosphorus, Blood 8.5 mg/dL (2.5-4.9)
--- NOTE | 2021-09-27 05:25 | NUR ---
NOTIFIED CALLED DR NELSON REGARDING CRITICAL RESULTS. NEW ORDERS PROVIDED FOR BICARB IV PUSH, D5W W/ 3AMP BICARB, AND CALCIUM CHLORIDE.
--- NOTE | 2021-09-27 06:32 | NUR ---
END OF SHIFT SUMMARY PT CONTINUED TO BE HYPOTENSIVE AND FEBRILE THROUGHOUT SHIFT. (SEE MIDNIGHT NOTES). PT IS INTUBATED AND SEDATED. PROPOFOL 25MCG/KG/MIN. PRECEDEX 1.4 MCG/KG/HR. VENT AC VC 18/500/10/60%. SPO2 88-96%. PTs TEMP CAME DOWN AND IS NOW HYPOTHERMIC @95.5. COOLING DISCONTINUED AT 99.8. WARM BLANKETS APPLYIED. CRITICAL HIGH LAB VALUES: WBC 64.3, MAG 8.5, CRITICAL LOW: ABG pH 6.9. CALCIUM CHLORIDE STARTED AT 120MLS/HR. SODIUM BICARB PUSH WELL CRI @150MLS/HR. PT REMAINS UNRESPONSIVE TO VERBAL/NOXIOUS STIMULI. PT DOES NOT COUGH OR GAG DURING SUCTION. PT IS DIAPHORETIC BUT OVERALL GOOD SKIN INTEGRITY. SEVERELY DISTENDED ABDOMEN. SBP AFTER MIDNIGHT 100-110s. MAP 60-100s. EPINEPHERINE 7MCG/MIN. JONG 120MCG/MIN. VASOPRESSIN 0.04UNTIS/MIN. LEVOPHED 30MCG/MIN. DR NELSON BEDSIDE. WILL CONTINUE TO MONITOR AND REPORT TO ONCOMING RN
--- NOTE | 2021-09-27 07:08 | NUR ---
UPDATE DR NELSON PLACED TRIALYSIS CATHETER TO RT GROIN AT 0630. PT TOLERATED WELL.
--- NOTE | 2021-09-27 07:47 | NUR ---
ASSUMPTION OF CARE RECEIVED REPORT FROM GERA PETIT AT 0700, ASSUMED CARE OF PATIENT. PATIENT INTUBATED, SEDATED ON PROPOFOL AND PRECEDEX. MULTIPLE PRESSORS INFUSING VIA PICC LINE TO LUE TO MAINTAIN B/P. TRIALYSIS CURRENTLY BEING PLACED BY DR. NELSON 20CM, 12F TO RIGHT GROIN. METHODS STUDY ANALYST NOTIFIED SMOKE ROOM OPERATOR WITH PLAN TO COMPLETE DIALYSIS SOON POSSIBLE. ABDOMINAL PRESSURE ASSESSED AT [address] NELSON'S DIRECTION WITH RESULT OF 36, LESLIE NOTIFIED AT BEDSIDE OF RESULT. AT 0735 BEAR HUGGER PLACED PER LOW TEMPERATURE BEING READ BY BRUNSON CATHETER. WILL CONTINUE TO MONITOR.
--- NOTE | 2021-09-27 12:39 | NUR ---
OR PATIENT TO OR AT THIS TIME.
--- NOTE | 2021-09-27 12:58 | NUR ---
09/27/21 Monica8 Bakari Cantu PT BROUGHT TO OR FROM ICU. ICU NURSE ASSISTED ANESTHIA WITH PUMPS UNTIL PT WAS SETTLED ON BED. PT ON SCHEDULED ANTIBIOTICS AND RECIEVED PRIOR TO ARRIVAL TO OR.
--- NOTE | 2021-09-27 13:28 | NUR ---
RETURN TO ROOM PATIENT ARRIVED TO ROOM FROM OR AT 1316. NO CHANGES TO VENTILATION OR IV INFUSIONS. ABD WITH DRESSING AND WOUND VAC TO SUCTION OF 120mmHG. RECTAL TUBE AND BRUNSON CATHETER REMAIN PATENT. TEMP. 97.2, SAMANTHA COLVIN REMOVED.
--- NOTE | 2021-09-27 16:35 | NUR ---
UPDATE PATIENT WITH JERKING NOTED TO BUE EXTREMITIES WITH HEAD AND EYES TWITCHING. NO PURPOSEFUL RESPONSE NOTED. NO URINE OUTPUT SINCE PATIENT RETURNED FROM OR. INCREASED DOSES ON PRESSORS TO MAINTAIN MAP ABOVE 65. NOTIFIED DR. NELSON OF NEURO RESPONSE, URINE OUTPUT AND INCREASED MEDICATIONS. RECEIVED ORDERS FOR ABG, PROPOFOL RESTARTED, AND PRN ATIVAN ORDERED. NO CHANGES FOR URINE OUTPUT AT THIS TIME.
[2021-09-27 17:37] LABS: PCO2 Arterial 44.8 mmHg (35-45); PO2 Arterial 68.9 mmHg (80-100)
[2021-09-27 17:38] LABS: pH Blood Arterial 6.88 (7.35-7.45)
--- NOTE | 2021-09-27 18:20 | NUR ---
SHIFT SUMMMARY TRIALYSIS PLACED AT START OF SHIFT, DIALYSIS COMPLETED. PATIENT TO OR FOR ABDOMINAL DECOMPRESSION, RETURNED WITH WOUND VAC IN PLACE TO SUCTION. REMAINED INTUBATED WITH FI02 INCREASED TO 85% AFTER ABG WAS DRAWN. OG TO LIS WITH DARK LIQUID DRAINAGE, CLAMPED FOR PO MEDICATION ADMINSTRATION. DECREASED URINE OUTPUT, DR. NELSON AWARE. PATIENT WITH SEIZURE LIKE ACTIVITY, PROPOFOL RESTARTED AND ATIVAN GIVEN PRN. FAMILY TO BEDSIDE AND UPDATED WITH CHANGES. IV PRESSORS INFUSING WITH MAP ABOVE 65. WILL REPORT TO ONCOMING RN.
--- NOTE | 2021-09-27 19:00 | NUR ---
ASSUMED CARE OF PT @1900 PT IS SEDATED AND INTUBATED. PROPOFOL 15MCG/KG/MIN. ETT TUBE SZ 8, 27CM @ TEETH. VENT AC VC 24/400/10/85%. RR 12. SPO2 IS NOT REGISTERING. PT IS TWITCHING IN HIS FACE AND EXTREMITIES. PT HAS BEEN EXPERIENCING SEIZURE LIKE ACTIVITY THIS AFTERNOON. PICC KANDICE. TRIALYSIS CATH IN R GROIN. VASOPRESSIN 0.04 UNITS/MIN. NEOSYNEPHRINE 200 MCG/MIN. EPINEPHRINE 14 MCG/MIN. LEVOPHED 40 MCG/MIN. HR 100-120s. SBP 50-90s. MAP 40-70s. TKO NS 10MLS/HR. PT HAS WOUND VAC ON ABDOMEN ACTIVELY DRAINING. OG TUBE ON INTERMITTENT SUCTION. TEMP BRUNSON IN PLACE BUT NOT PRODUCING URINE IN LINE OR COLLECTION DEVICE. TEMP 98.6. RECTAL TUBE PATENT AND DRAINING TO GRAVITY. FRIEND/FAMILY DIALLO AND WING AT BEDSIDE. SEE FULL ASSESSMENT.
--- NOTE | 2021-09-27 20:14 | NUR ---
UPDATE CALLED DR NELSON REGARDING CONT SEIZING LIKE ACTIVITY AFTER GIVING 4MG ATIVAN, NEW ORDERS PROVIDED FOR ANTONIO.
[2021-09-27 21:42] LABS: PCO2 Arterial 54.7 mmHg (35-45); PO2 Arterial 77.3 mmHg (80-100)
--- NOTE | 2021-09-27 21:45 | NUR ---
FRIEND NIKHIL AT BEDSIDE.
[2021-09-27 22:20] LABS: Albumin, Blood 0.9 g/dL (3.4-5.0); Anion Gap 22 mmol/L (6-16); Blood Urea Nitrogen 54 mg/dL (8-24); Bun/Creatinine Ratio 13.5 (12.0-20.0); CO2, Blood 13 mmol/L (21-32); Calcium, Blood 6.8 mg/dL (8.5-10.1); Chloride, Blood 87 mmol/L (98-108); Creatinine, Blood 4.01 mg/dL (0.60-1.20); Glomerular Filtration Rate 17 (60-); Glucose, Blood 386 mg/dL (70-99); Phosphorus, Blood 9.1 mg/dL (2.5-4.9); Potassium, Blood 4.9 mmol/L (3.5-5.5); Sodium, Blood 122 mmol/L (136-145)
--- NOTE | 2021-09-27 22:39 | NUR ---
UPDATE CALLED DR LUJAN REGARDING CRITICAL LABS AND PT CONDITION. NEW ORDERS PROVIDED FOR 2AMPS OF BICARB PUSH, INCREASE BICARB GTT TO 250ML/HR, AND TO CONTACT METALLURGIST PROCESS FOR URGENT DIALYSIS TO BE DONE TONIGHT. NURSING CHEMICAL PROCESSING SUPERVISOR CALLED TO CONTACT DIALYSIS NURSE. CALLED CHIOMA REGARDING DETERIORATION, MAXING OF PRESSORS, AND THE ORDER FOR DIALYSIS TONIGHT. CHIOMA STATED THAT "EVERY MINUTE THAT HE IS ALIVE IS A MIRACLE" AND WANTS TO CONTINUE ALL TREATMENTS.
--- NOTE | 2021-09-27 22:40 | NUR ---
CALL TO SON CALL TO SON SONYA RODRIGUES FOR UPDATE REGARDING PT. EXPLAINED THAT PT IS MAXED OUT ON MEDICATIONS AND THAT HIS LABS ARE WORSE THAN THIS MORNING. EXPLAINED THAT HE NEEDED TO HAVE DIALYSIS AGAIN TONIGHT AND THAT WHEN HE HAD DIALYSIS THIS MORNING THAT THE PT DROPPED HIS BLOOD PRESSURE AND HAD TO MAX OUT ON MEDS. WITH PT ALREADY MAXED OUT ON BLOOD PRESSURE MEDS AT THIS TIME AND WITH DOING DIALYSIS WE MAY LOSE THE PATIENT. EXPLAINED THAT THE ONLY THING WE COULD DO IS CPR AND THAT WOULD NOT FIX WHAT IS HAPPING. SON SAID,"I UNDERSTAND, BUT IF I SAY NO CPR EVEN THOUGH I KNOW IT IS NOT GOING TO FIX ANYTHING THE REST OF THE FAMILY WOULD SAY I GAVE UP ON HIM. SO WE NEED TO KEEP DOING EVERYTHING. I UNDERSTAND THAT THE NEXT CALL I RECEIVE WILL BE TELLING ME HE IS GONE. I'M SORRY. KEEPING DOING EVERYTHING".
--- NOTE | 2021-09-28 02:00 | NUR ---
PT IN DIALYSIS FOR 0200 REPOSITIONING.
--- NOTE | 2021-09-28 03:00 | NUR ---
PT HAD DIALYSIS OVER 2 HOURS STARTING APPROX 0100. PT SBP DROPPED TO THE 70s THEN IMPROVED AND WAS STABLE IN THE 80s AND 90s. HR DROPPED INTO THE 90s THEN RETURNED TO 130s. 1.1 LITERS REMOVED. PT TOLERATED WELL.
[2021-09-28 05:26] LABS: Hematocrit 25.8 % (37.0-53.0); Hemoglobin 8.4 g/dL (13.5-17.5)
[2021-09-28 06:06] LABS: Magnesium, Blood 2.1 mg/dL (1.6-2.4); Thyroid Stimulating Hormone 1.15 uIU/mL (0.360-4.800)
[2021-09-28 06:14] LABS: Albumin, Blood 0.8 g/dL (3.4-5.0); Albumin/Globulin Ratio 0.3 (0.8-1.8); Bilirubin, Direct 1.8 mg/dL (0.0-0.3); Bilirubin, Indirect 0.8 mg/dL (0.1-0.7); Bilirubin, Total 2.6 mg/dL (0.1-1.0); Bun/Creatinine Ratio 11.2 (12.0-20.0); Calcium, Blood 5.8 mg/dL (8.5-10.1); Creatinine, Blood 3.04 mg/dL (0.60-1.20); Globulin, Blood 2.8 g/dL (2.2-4.0); Phosphorus, Blood 7.9 mg/dL (2.5-4.9); Potassium, Blood 3.8 mmol/L (3.5-5.5)
[2021-09-28 06:17] LABS: Total Protein, Blood 3.6 g/dL (6.4-8.2)
--- NOTE | 2021-09-28 06:28 | NUR ---
END OF SHIFT SUMMARY PT HAD SEIZURE LIKE ACTIVITY AT THE BEGINNING OF SHIFT. KEPPRA GIVEN @2029. SEIZURE ACTIVITY SLOWLY CEASED. SINCE THEN NO ACUTE EVENTS. PT REMAINS UNRESPONSIVE TO VERBAL/NOXIOUS STIMULI. PUPILS ARE FIXED/DILATED/UNEVEN. DOES NOT COUGH OR GAG DURING SUCTION. CRITICAL HIGH ABG pH@2138. TWO VIALS OF BICARB PUSHED. PT HAD DIALYSIS FROM [id number]. PT HAD A DECREASE IN HR AND SBP (SEE NOTE). PT IS SEDATED WITH PROPOFOL 15 MCG/KG/MIN. PT HAS BEEN RIDING VENT AT SETTINGS AC VC 24/400/10/85%. VASOPRESSIN 0.04 UNITS/MIN. EPINEPHRINE 29MCG/MIN. LEVOPHED 40 MCG/MIN. NEOSYNEPHRINE 200 MCG/MIN. HR 100-130s. SBP 90-150s. WOUND VACC IN PLACE AND DRAINING. PT HAS SEVERELY DISTENDED ABDOMEN. INTERMITTENT SUCTION ON OG TUBE. BRUNSON PATENT AND DRAING SMALL AMOUNTS. RECTAL TUBE DRAINING TO GRAVITY. PT HAS SEVERE GENERALIZED EDEMA. GOOD OVERALL SKIN INTEGRITY. WILL CONTINUE TO MONITOR AND REPORT TO ONCOMING RN.
--- NOTE | 2021-09-28 08:00 | NUR ---
PT REMAINS INTUBATED AND MECHANICALLY VENTILATED. PUPILS ARE FIXED AND DILATED.SCLERAL JAUNDICE AND EDEMA NOTED. PT NOT RESPONDING TO PAINFUL STIMULI. PROPOFOL @ 15 MCG/KG/MIN PT WAS HAVING SEIZURE LIKE ACTIVITIY. NO NOTED SEIZURE ACTIVITY THIS AM. ECG SHOWS ST WITH RATE 100-110'S. TITRATING MULTIPLE PRESSORS TO KEEP MAP 60-65. CURRENTLY, EPI @ 18 MCG, NEOSYNEPHRINE @ 200MCG, LEVOPHED @ 40 MCG, VASOPRESSIN @ 0.04 UNITS/KG/MIN. BICARB DRIP @ 250 CC/HR. CALCIUM GLUCONATE 1 GM INFUSING. ETT TO VENT: AC 24, TV 400, FIO2 85%, PEEP 10-UNABLE TO OBTAINS SPO2 PT VERY CLAMPED DOWN/VASOCONSTRICTED-POOR PERFUSION TO EXTREMITIES. PEAK PRESSURES TRENDING 50'S AND CO2 30'S. LUNGS VERY DIMINISHED. SUCTION PRODUCTIVE OF MODERATE AMOUNT OF THICK, OLD, BLOODY SECRETIONS. ABDOMEN REMAINS EXTREMELY DISTENDED AND FIRM. WOUND VAC DRESSING INTACT. WOUND VAC CANISTER WITH MODERATE AMOUNT OF SANGINOUS DRAINAGE. RECTAL TUBE WITH MODERATE AMOUNT OF BROWN, LIQUID STOOL-PT IN ISOLATION FOR C-DIFF. BT'S ABSENT. BRUNSON TO BSD WITH SMALL AMOUNT OF RACHEL URINE-BRUNSON ON ICE FOR 24 HOUR URINE. RIGHT FEMORAL TRIALYSIS CATHETER SITE CLEAR-ANTICIPATE DIALYSIS THIS AM. PT "BEST" FRIEND IN FOR VISIT. SHE WAS FOUND RUMMAGING THROUGH PT WALLET AND WAS ASKING FOR HIS PHONE TO TRY TO CONTACT "FAMILY MEMBERS." NURSE TRANSITIONAL TOBI MADE AWARE. SECURITY TO COME AND PLACE WALLET IN THE SAFE.
--- NOTE | 2021-09-28 09:07 | NUR ---
DR. MI IN TO SEE PT. UPDATE GIVEN. STAT ABG REQUESTED.
[2021-09-28 09:19] LABS: PO2 Arterial 70.9 mmHg (80-100)
[2021-09-28 09:20] LABS: pH Blood Arterial 7.06 (7.35-7.45)
--- NOTE | 2021-09-28 09:22 | NUR ---
ABG RESULTS TO DR. MI-FIO2 TITRATE UP TO 100%.
--- NOTE | 2021-09-28 09:51 | NUR ---
DR. MI AND THIS RN SPOKE WITH PT AUNT DIALLO AT LENGTH. ACCORDING TO HER, WINGDIALLO, AND PT SON KARMEN ARE THE ONLY ONES TO GET MEDICAL INFO AND TO VISIT AT THIS TIME. AFTER SPEAKING WITH DR. MI, DIALLO DECIDED TO MAKE PT NO CPR AND IS AGAIN TRYING TO CONTACT PT SON KARMEN. KARMEN IS IN THE AND THE [place] HAS BEEN CONTACTED.
--- NOTE | 2021-09-28 10:10 | NUR ---
ABDOMEN APPEARS MORE DISTENDED THAN PREVIOUS ASSESSMENT.
--- NOTE | 2021-09-28 10:13 | NUR ---
Advisory guidance for decisional privilege requested. Chart notes, medical history, and prognositic indicators reviewed and discussed with nursing staff. 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 There is no optimism with respect to his mentation stabalizing, or his situation imrpoving clinically. I verified that defaulting to the aunt for treatment planning in the absence of securing directional input from a less remote family member is ethically and legally appropriate. See ORS 127.635. A good paolo effort has been made to include the principals biological son in the conversation. The aunt reports that she is in communication with him via email keeping him informed. She reports that he is in alignment with a non-aggressive approach to care and its eventual de-escalation. Arrangements are underway to create an opportunity for the son to video-conference with his father, and potentially express final senitments. Thank you for this consult. Jason Buenrostro, PhD, NOLBERTO
--- NOTE | 2021-09-28 12:00 | NUR ---
NO ACUTE NEURO CHANGES. NO SEIZURE ACTIVITY. PROPOFOL HAS BEEN ON SB FOR A COUPLE OF HOURS. PT CONTINUES ON MULTIPLE PRESSORS-TITRATING TO KEEP MAP 60-65-SEE FLOWSHEET. STILL UNABLE TO OBTAIN SPO2-PEAK PRESSURES CONTINUE IN THE 50'S. CO2 30'S. ABDOMINAL DISTENTION CONTINUE TO INCREASE. WOUND VAC REMAINS INTACT. STILL NO BT'S. 24 HOUR URINE HAS BEEN DISCONTINUED. PT WITH SMALL AMOUNT OF RACHEL URINE TO UROMETER. DR. MI SPOKE WITH KARMEN SCOTT-PT SON. DNR BAND PLACED TO RIGHT WRIST. PT SON TO SPEAK WITH CHIOMA TO DISCUSS LIBERATION FROM THE VENTILATOR AND VASOPRESSORS. PT S/O WING HAS BEEN AT THE BEDSIDE AND UPDATED TO STATUS AND PLAN OF CARE.
--- NOTE | 2021-09-28 14:32 | NUR ---
DR. MI AT BEDSIDE. MD MADE AWARE THAT PT ABDOMEN CONTINUES TO BE INCREASINGLY MORE AND MORE DISTENDED AND HIS OVERALL EDEMA CONTINUES TO INCREASE WELL. BLOOD IS OOZING FROM BOTH NOSTRILE-2X2 PLACED TO BOTH NOSTRILS. DR. MI UPDATED WING-PT S/O AND DISCUSSED PLAN OF CARE WITH HER FURTHER.
--- NOTE | 2021-09-28 15:00 | NUR ---
NEOSYNEPHRINE DRIP DISCONTINUED PER DR. MI. LEVOPHED TITRATED UP TO 40 MCG/MIN AND EPINEPHRINE TITRATED UP TO 20 MCG/MIN AND FENTANYL CONTINUOUS DRIP INITIATED @ 100 MCG/HR AFTER LOADING DOSE OF 100 MCG GIVEN-SEE EMAR.
--- NOTE | 2021-09-28 16:00 | NUR ---
NO NEURO CHANGES. PT STILL ON MULTIPLE PRESSORS TO MAINTAIN MAP 60-65. FIO2 CONTINUES @ 100%. STILL UNABLE TO GET SPO2 READING. PEAK PRESSURES TRENDING 55-60'S. PT IS GROSSLY EDEMATOUS AND HIS ABDOMINAL DISTENTION CONTINUES TO INCREASE. URINE OUTPUT REMAINS POOR. DAMARIS FROM PALLIATIVE CARE HERE TO SPEAK WITH PT S/O WING. SHE PLANS TO CONTACT PT NEXT OF KIN TO UPDATE AND EXPLORE COMFORT CARE.
--- NOTE | 2021-09-28 17:07 | NUR ---
Pt's son Jeremiah clarke placed pt on comfort care this evening. He passed peacefully per bedside RN. Family was notified.
--- NOTE | 2021-09-28 17:17 | NUR ---
AFTER DISCUSSION WITH PALLIATIVE CARE RN, PT FAMILY DECIDED TO CHANGE PT TO COMFORT CARE. PT MED WITH ATROPINE DROPS AND ATIVAN 2 MG IVP, THEN EXTUBATED @ 1713. HE @ 1715 WITH WING AT BEDSIDE.
--- NOTE | 2021-09-28 17:30 | NUR ---
PT SON AND AUNT CHIOMA NOTIFIED OF PT PASSING. THEY REQUEST THAT A HOME BE SELECTED FOR THEM THEY ARE OUT OF STATE. ALSO, PT BELONGINGS ARE TO BE RELEASED TO HIS AUNT FREYA.
--- NOTE | 2021-09-28 21:11 | NUR ---
I RETRIEVED SECURITY ENVELOPE FROM [place] AND GAVE UNOPENED ENVELOPE & CELL PHONE TO PTS AUNT FREYA SANTIAGO. .
[2021-09-30 15:08] LABS: IMMUNOGLOBULIN A, QN, SERUM 687 mg/dL (90-386); IMMUNOGLOBULIN G, QN, SERUM 759 mg/dL (603-1613); IMMUNOGLOBULIN M, QN, SERUM 45 mg/dL (20-172)
[2021-10-01 08:12] LABS: ANTIGLOMERULAR BM AB 4 units (0-20)
[2021-10-02 11:11] LABS: ANTIMYELOPEROXIDASE (MPO) ABS <9.0 U/mL (0.0-9.0); ANTIPROTEINASE 3 (PR-3) ABS 3.7 U/mL (0.0-3.5); ATYPICAL PANCA <1:20 titer (Neg:<1:20); CYTOPLASMIC (C-ANCA) <1:20 titer (Neg:<1:20); PERINUCLEAR (P-ANCA) <1:20 titer (Neg:<1:20)
== END 2021-09-28 18:47 | DRG 853 ==
LOC: ER 17:45 → ICUW 21:20 → ICUE 21:20
PROVIDERS: Emergency Medicine; Internal Medicine; Internal Medicine Critical Care Medicine; Internal Medicine Nephrology; Pharmacist Pharmacotherapy; Student in an Organized Health Care Education/Training Program; ADMIT Internal Medicine
PROC: 009U3ZX Drainage of Spinal Canal, Percutaneous Approach, Diagnostic (ICD-10-PCS; principal; 2021-09-17)
PROC: HZ2ZZZZ Detoxification Services for Substance Abuse Treatment (ICD-10-PCS; 2021-09-17)
PROC: 0BH18EZ Insertion of Endotracheal Airway into Trachea, Via Natural or Artificial Opening Endoscopic (ICD-10-PCS; 2021-09-17)
PROC: 02HV33Z Insertion of Infusion Device into Superior Vena Cava, Percutaneous Approach (ICD-10-PCS; 2021-09-17)
PROC: 3E033XZ Introduction of Vasopressor into Peripheral Vein, Percutaneous Approach (ICD-10-PCS; 2021-09-17)
PROC: 0DJ08ZZ Inspection of Upper Intestinal Tract, Via Natural or Artificial Opening Endoscopic (ICD-10-PCS; 2021-09-17)
PROC: 3E03329 Introduction of Other Anti-infective into Peripheral Vein, Percutaneous Approach (ICD-10-PCS; 2021-09-17)
PROC: 5A1955Z Respiratory Ventilation, Greater than 96 Consecutive Hours (ICD-10-PCS; 2021-09-18)
PROC: 02H633Z Insertion of Infusion Device into Right Atrium, Percutaneous Approach (ICD-10-PCS; 2021-09-25)
PROC: 30233N1 Transfusion of Nonautologous Red Blood Cells into Peripheral Vein, Percutaneous Approach (ICD-10-PCS; 2021-09-25)
PROC: 0W9G0ZZ Drainage of Peritoneal Cavity, Open Approach (ICD-10-PCS; 2021-09-27)
PROC: 06HY33Z Insertion of Infusion Device into Lower Vein, Percutaneous Approach (ICD-10-PCS; 2021-09-27)
PROC: 5A1D70Z Performance of Urinary Filtration, Intermittent, Less than 6 Hours Per Day (ICD-10-PCS; 2021-09-27)
DX: A41.9 Sepsis, unspecified organism (principal); K72.00 Acute and subacute hepatic failure without coma; J96.01 Acute respiratory failure with hypoxia; N17.0 Acute kidney failure with tubular necrosis; G92.8 Other toxic encephalopathy; R65.21 Severe sepsis with septic shock; F10.231 Alcohol dependence with withdrawal delirium; F11.20 Opioid dependence, uncomplicated; K92.0 Hematemesis; A04.72 Enterocolitis due to Clostridium difficile, not specified as recurrent; E87.1 Hypo-osmolality and hyponatremia; E87.4 Mixed disorder of acid-base balance; D62 Acute posthemorrhagic anemia; K76.6 Portal hypertension; J98.11 Atelectasis; M79.A3 Nontraumatic compartment syndrome of abdomen; Z78.1 Physical restraint status; Z66 Do not resuscitate; R57.1 Hypovolemic shock; Z51.5 Encounter for palliative care; E83.42 Hypomagnesemia; M25.561 Pain in right knee; K70.30 Alcoholic cirrhosis of liver without ascites; D69.59 Other secondary thrombocytopenia; E87.6 Hypokalemia; E83.39 Other disorders of phosphorus metabolism; E87.5 Hyperkalemia; G89.4 Chronic pain syndrome; F41.8 Other specified anxiety disorders; Z85.47 Personal history of malignant neoplasm of testis; Z90.49 Acquired absence of other specified parts of digestive tract; Z98.890 Other specified postprocedural states; Z79.899 Other long term (current) drug therapy; R57.8 Other shock
CPT/HCPCS: 31500; 36415; 36556; 36569; 36600; 51701; 51702; 62270; 70450; 71045; 71260; 74176; 76705; 80048; 80053; 80069; 80074; 80202; 81001; 82105; 82140; 82150; 82248; 82330; 82550; 82803; 82945; 83605; 83690; 83735; 84100; 84132; 84157; 84443; 84550; 85014; 85018; 85025; 85027; 85610; 85730; 86850; 86900; 86901; 87040; 87070; 87077; 87086; 87186; 87205; 87252; 87254; 87324; 87483; 87493; 89051; 93005; 93010; 93306; 94002; 94003; 96365; 96367; 96368; 96375; 99285-25; A9270; C1751; C1752; C9113; G0480; J0171; J0330; J0610; J0692; J0696; J1100; J1644; J1720; J1940; J1953; J2060; J2250; J2354; J2370; J2543; J2704; J2765; J3010; J3370; J3411; J3475; J3480; J7030; J7040; J7042; J7050; J7060; J7070; J7120; P9046; Q9967